=== PATIENT | female | born 1950 | race Caucasian/White ===

== ENCOUNTER 2016-12-30 23:41 | Emergency (ER) | payer MEDICARE, OTHER ==
[2016-12-31] MEDS ORDERED: SODIUM CHLORIDE 0.9% 1,000 ML IV STA (00:08)
[2016-12-31] MEDS ORDERED: ONDANSETRON 4 MG/2 ML VIAL IVP STA (00:08)
[2016-12-31 00:24] LABS: Basophils # (A) 0.1 k/uL (0-0.2); Basophils % (A) 1 %; CH 30.7; CHCM 34.2; Eosinophils # (A) 0.1 k/uL (0-0.7); Eosinophils % (A) 2 %; HCT 37.5 % (34.0-46.0); HDW 2.32; HGB 12.6 gm/dL (11.4-16.0); Luc # (Auto) 0.13; Luc % (Auto) 2; Lymphocytes # (A) 3.4 k/uL (1.0-4.8); Lymphocytes % (A) 45 %; MCH 30.2 pg (25.0-35.0); MCHC 33.6 g/dL (31.0-37.0); Mean Platelet Volume 7.2; Monocytes # (A) 0.4 k/uL (0-1.0); Monocytes % (A) 6 %; Neutrophils # (A) 3.5 k/uL (1.3-7.7); Neutrophils % (A) 46 %; RBC 4.16 m/uL (3.80-5.40); RDW 14.3 % (11.5-15.5); WBC 7.6 k/uL (3.8-10.6); WBC (Perox) 7.82
--- NOTE | 2016-12-31 00:25 | ED ---
General Adult HPI - General Chief complaint: Abdominal Pain Stated complaint: abd pain Time Seen by Provider: 12/31/16 00:06 Source: patient, EMS, RN notes reviewed Mode of arrival: EMS - History of Present Illness Initial comments: 66-year-old female presents to the emergency department with a chief complaint of left-sided flank pain. Patient states this started today and gradually got worse. Patient denies any changes in urination. Patient denies any fever or chills. Patient states she does have a family history of kidney stones so she thought that maybe this was it. Patient denies any nausea or vomiting. Patient states that her pain has improved somewhat. Patient states that she is not currently having any other symptoms at this time.Patient denies any recent fever, chills, shortness of breath, chest pain, nausea vomiting, numbness or tingling, dysuria or hematuria, constipation or diarrhea, headaches or visual changes, or any other current symptoms. - Related Data Home Medications Medication Instructions Recorded Confirmed Calcium Carbonate/Vitamin D3 1 each PO Q48H 09/06/14 09/07/14 [Calcium 600-Vit D3 400 Tablet] Fish Oil/Dha/Epa [Fish Oil 1,200 1 each PO DAILY 09/06/14 09/07/14 mg Fish Oil] Multivitamins, Thera [Multivitamin 1 each PO DAILY 09/06/14 09/07/14 (formulary)] Citalopram Hydrobromide [CeleXA] 10 mg PO DAILY PRN 09/07/14 09/07/14 Fluticasone Propionate [Flonase 1 spray EA NOSTRIL BID PRN 09/07/14 09/07/14 Allergy Relief] Isosorbide Mononitrate [Imdur] 120 mg PO DAILY 09/07/14 09/07/14 Metoprolol Tartrate [Lopressor] 50 mg PO BID 09/07/14 09/07/14 amLODIPine [Norvasc] 5 mg PO DAILY 09/07/14 09/07/14 Previous Rx's Medication Instructions Recorded Omeprazole [PriLOSEC] 20 mg PO DAILY capsule. 09/10/14 Ketorolac [Toradol] 10 mg PO Q6HR #20 tab 12/31/16 Ondansetron Odt [Zofran ODT] 4 mg PO Q8HR PRN #20 tab 12/31/16 Tamsulosin [Flomax] 0.4 mg PO DAILY #5 cap 12/31/16 Allergies Allergy/AdvReac Type Severity Reaction Status Date / Time No Known Allergies Allergy Verified 09/06/14 20:30 Review of Systems ROS Statement: Those systems with pertinent positive or pertinent negative responses have been documented in the HPI. ROS Other: All systems not noted in ROS Statement are negative. Past Medical History Past Medical History: Hypertension History of Any Multi-Drug Resistant Organisms: None Reported Past Surgical History: Hysterectomy, Tonsillectomy Additional Past Surgical History / Comment(s): pt states she has enlarged heart , denies any other history. cataract surgery. Tonsillectomy Past Psychological History: No Psychological Hx Reported Smoking Status: Former smoker Past Alcohol Use History: Rare Past Drug Use History: None Reported General Exam - General Exam Comments Initial Comments: General: The patient is awake and alert, in no distress, and does not appear acutely ill. Eye: Pupils are equal, round and reactive to light, extra-ocular movements are intact; there is normal conjunctiva bilaterally. No signs of icterus. Ears, nose, mouth and throat: There are moist mucous membranes. Neck: The neck is supple, there is no tenderness. Cardiovascular: There is a regular rate and rhythm. No murmur, rub or gallop is appreciated. Respiratory: Lungs are clear to auscultation, respirations are non-labored, breath sounds are equal. No wheezes, stridor, rales, or rhonchi. Gastrointestinal: Soft, non-distended, non-tender abdomen without masses or organomegaly noted. There is no rebound or guarding present. No CVA tenderness. Bowel sounds are unremarkable. Back: There is no tenderness to palpation in the midline. There is no obvious deformity. No rashes noted. Musculoskeletal: Normal ROM, no tenderness, There is no pedal edema. There is no calf tenderness or swelling. Sensation intact. Pulses equal bilaterally 2+. Neurological: CN II-XII intact, There are no obvious motor or sensory deficits. Coordination appears grossly intact. Speech is normal. Skin: Skin is warm and dry and no rashes or lesions are noted. Psychiatric: Cooperative, appropriate mood & affect, normal judgment. Course Vital Signs 12/30/16 12/31/16 12/31/16 23:55 01:12 02:00 Temperature 97.6 F 97.6 F Pulse Rate 77 71 65 Respiratory 16 18 18 Rate Blood Pressure 131/88 123/74 139/83 O2 Sat by Pulse 98 96 98 Oximetry Medical Decision Making - Medical Decision Making 66-year-old female presents to the emergency Department chief complaint of left- sided flank pain. This time patient's pain has resolved. Patient does appear to have a decreased carbon dioxide when compared to previous lab work it does appear to be close to her baseline. This time we discussion stop the doctor for repeat. We did discuss she's be extra careful will still she feels any abnormality or starts to worsen she is return the emergency Department immediately. We did CAT scan findings we did discuss chest. This. We discussed all the questions. She stated she understood and she plan. She will be discharged - Lab Data Result diagrams: 12/30/16 23:55 12/31/16 02:11 Lab Results 12/30/16 12/30/16 12/31/16 Range/Units 23:55 23:55 01:21 WBC 7.6 (3.8-10.6) k/uL RBC 4.16 (3.80-5.40) m/uL Hgb 12.6 (11.4-16.0) gm/dL Hct 37.5 (34.0-46.0) % MCV 90.0 (80.0-100.0) fL MCH 30.2 (25.0-35.0) pg MCHC 33.6 (31.0-37.0) g/dL RDW 14.3 (11.5-15.5) % Plt Count 251 (150-450) k/uL Neutrophils % 46 % Lymphocytes % 45 % Monocytes % 6 % Eosinophils % 2 % Basophils % 1 % Neutrophils # 3.5 (1.3-7.7) k/uL Lymphocytes # 3.4 (1.0-4.8) k/uL Monocytes # 0.4 (0-1.0) k/uL Eosinophils # 0.1 (0-0.7) k/uL Basophils # 0.1 (0-0.2) k/uL Sodium 138 (137-145) mmol/L Potassium 4.1 (3.5-5.1) mmol/L Chloride 109 H (98-107) mmol/L Carbon Dioxide 14 L (22-30) mmol/L Anion Gap 15 mmol/L BUN 19 H (7-17) mg/dL Creatinine 1.00 (0.52-1.04) mg/dL Est GFR (MDRD) Af Amer >60 (>60 ml/min/1.73 sqM) Est GFR (MDRD) Non-Af 55 (>60 ml/min/1.73 sqM) Glucose 109 H (74-99) mg/dL Calcium 9.3 (8.4-10.2) mg/dL Total Bilirubin 0.7 (0.2-1.3) mg/dL AST 17 (14-36) U/L ALT 25 (9-52) U/L Alkaline Phosphatase 75 (38-126) U/L Total Protein 6.0 L (6.3-8.2) g/dL Albumin 3.8 (3.5-5.0) g/dL Amylase 45 (30-110) U/L Lipase 129 (23-300) U/L Urine Color Light Yellow Urine Appearance Clear (Clear) Urine pH 6.5 (5.0-8.0) Ur Specific Stuart 1.006 (1.001-1.035) Urine Protein Negative (Negative) Urine Glucose (UA) Negative (Negative) Urine Ketones Negative (Negative) Urine Blood Negative (Negative) Urine Nitrite Negative (Negative) Urine Bilirubin Negative (Negative) Urine Urobilinogen <2.0 (<2.0) mg/dL Ur Leukocyte Esterase Negative (Negative) 12/31/16 Range/Units 02:11 WBC (3.8-10.6) k/uL RBC (3.80-5.40) m/uL Hgb (11.4-16.0) gm/dL Hct (34.0-46.0) % MCV (80.0-100.0) fL MCH (25.0-35.0) pg MCHC (31.0-37.0) g/dL RDW (11.5-15.5) % Plt Count (150-450) k/uL Neutrophils % % Lymphocytes % % Monocytes % % Eosinophils % % Basophils % % Neutrophils # (1.3-7.7) k/uL Lymphocytes # (1.0-4.8) k/uL Monocytes # (0-1.0) k/uL Eosinophils # (0-0.7) k/uL Basophils # (0-0.2) k/uL Sodium 139 (137-145) mmol/L Potassium 3.9 (3.5-5.1) mmol/L Chloride 113 H (98-107) mmol/L Carbon Dioxide 15 L (22-30) mmol/L Anion Gap 11 mmol/L BUN 17 (7-17) mg/dL Creatinine 0.90 (0.52-1.04) mg/dL Est GFR (MDRD) Af Amer >60 (>60 ml/min/1.73 sqM) Est GFR (MDRD) Non-Af >60 (>60 ml/min/1.73 sqM) Glucose 104 H (74-99) mg/dL Calcium 8.8 (8.4-10.2) mg/dL Total Bilirubin 0.7 (0.2-1.3) mg/dL AST 17 (14-36) U/L ALT 22 (9-52) U/L Alkaline Phosphatase 68 (38-126) U/L Total Protein 5.5 L (6.3-8.2) g/dL Albumin 3.4 L (3.5-5.0) g/dL Amylase (30-110) U/L Lipase (23-300) U/L Urine Color Urine Appearance (Clear) Urine pH (5.0-8.0) Ur Specific Stuart (1.001-1.035) Urine Protein (Negative) Urine Glucose (UA) (Negative) Urine Ketones (Negative) Urine Blood (Negative) Urine Nitrite (Negative) Urine Bilirubin (Negative) Urine Urobilinogen (<2.0) mg/dL Ur Leukocyte Esterase (Negative) - Radiology Data Radiology results: report reviewed, image reviewed Disposition Clinical Impression: Ureteral calculi, Renal cyst Disposition: HOME SELF-CARE Condition: Stable Instructions: Ureteral Stones (ED) Additional Instructions: Please use medication as discussed. Please follow up with family doctor if symptoms have not improved over the next two days. Please return to the emergency room if your symptoms increase or worsen or for any other concerns. Prescriptions: Ketorolac [Toradol] 10 mg PO Q6HR #20 tab Ondansetron Odt [Zofran ODT] 4 mg PO Q8HR PRN #20 tab PRN Reason: Nausea Tamsulosin [Flomax] 0.4 mg PO DAILY #5 cap Referrals: Livia Ortega DO [Primary Care Provider] - 1-2 days Time of Disposition: 02:42
[2016-12-31 00:33] LABS: ALT 25 U/L (9-52); AST 17 U/L (14-36); Alkaline Phosphatase 75 U/L (38-126); Amylase 45 U/L (30-110); Anion Gap 15 mmol/L; Blood Urea Nitrogen 19 mg/dL (7-17); Calcium 9.3 mg/dL (8.4-10.2); Carbon Dioxide 14 mmol/L (22-30); Chloride 109 mmol/L (98-107); Glucose 109 mg/dL (74-99); Non-African American GFR(MDRD) 55 (>60 ml/min/1.73 sqM); Potassium 4.1 mmol/L (3.5-5.1); Sodium 138 mmol/L (137-145); Total Bilirubin 0.7 mg/dL (0.2-1.3)
[2016-12-31 01:14] VITALS: RESP 18
[2016-12-31 01:30] LABS: Appearance,Urine Clear (Clear); Bilirubin,Urine Negative (Negative); Glucose,Urine (UA) Negative (Negative); Ketones,Urine Negative (Negative); Leukocyte Esterase,Urine Negative (Negative); Nitrite,Urine Negative (Negative); PH, Urine 6.5 (5.0-8.0); Protein,Urine Negative (Negative); Specific Gravity,Urine 1.006 (1.001-1.035); UA Billing (MACRO vs. MICRO) CHEM; Urobilinogen,Urine <2.0 mg/dL (<2.0)
--- NOTE | 2016-12-31 01:37 | CT ---
EXAM: CT Abdomen and Pelvis Without Intravenous Contrast CLINICAL HISTORY: LLQ and left flank pain with bladder leakage and control issues, history of hysterectomy, renal stone protocol TECHNIQUE: Axial computed tomography images of the abdomen and pelvis without intravenous contrast. CTDI is 12.3 mGy and DLP is 573.7 mGy-cm. This CT exam was performed using one or more of the following dose reduction techniques: automated exposure control, adjustment of the mA and/or kV according to patient size, and/or use of iterative reconstruction technique. Coronal and sagittal reformatted images were created and reviewed. COMPARISON: CT abdomen and pelvis 09/06/14 FINDINGS: Lower thorax: Mild left basilar scarring/atelectasis. ABDOMEN: Liver: Prominent left lobe of the liver. Gallbladder and bile ducts: Unremarkable. No calcified stones. No ductal dilation. Pancreas: Unremarkable. No ductal dilation. Spleen: Unremarkable. No splenomegaly. Small splenule. Adrenals: Unremarkable. No mass. Kidneys and ureters: Bilateral parapelvic cysts. Tiny calcification region of the distal left ureter, axial image 121 of series 3. Somewhat limited evaluation due to streak artifact from surgical clips. Cannot exclude a possible ureteral stone without obstruction. No evidence for hydronephrosis. Stomach and bowel: Unremarkable. No obstruction. No mucosal thickening. Appendix: Normal appendix. No findings to suggest acute appendicitis. PELVIS: Bladder: Unremarkable. No stones. Reproductive: Uterus is surgically absent. ABDOMEN and PELVIS: Intraperitoneal space: Unremarkable. No free air. No significant fluid collection. Bones/joints: Moderate osteoarthritis of the hips. Multilevel degenerative disc disease. Grade 1 retrolisthesis at L2-3 and L5-S1. Grade 1 anterolisthesis L4-5. Multilevel facet joint hypertrophy present. Cystic degenerative changes of the right hip, progressive since prior study. Prominent bursal fluid collection of the left hip may be bursitis. No acute fracture. No dislocation. Soft tissues: Surgical changes to the pelvis posterior to the urinary bladder as well as of the lower aspect of the rectus diastases musculature. Very small fatty umbilical hernia. Vasculature: Mild atherosclerosis of the aorta. No abdominal aortic aneurysm. Lymph nodes: Unremarkable. No enlarged lymph nodes. IMPRESSION: 1. Bilateral parapelvic renal cysts. Tiny 1-2 mm calcification region of the distal left ureter, axial image 121 of series 3. Somewhat limited evaluation due to streak artifact from surgical clips. Cannot exclude a possible ureteral stone without obstruction. 2. Bursal collection at the inferior left hip joint, may be bursitis. 3. Progressive right hip degenerative changes.
[2016-12-31] MEDS ORDERED: KETOROLAC 30 MG/ML 1 ML VIAL IVP STA (01:48)
[2016-12-31 02:34] LABS: ALT 22 U/L (9-52); AST 17 U/L (14-36); Alkaline Phosphatase 68 U/L (38-126); Anion Gap 11 mmol/L; Blood Urea Nitrogen 17 mg/dL (7-17); Calcium 8.8 mg/dL (8.4-10.2); Carbon Dioxide 15 mmol/L (22-30); Chloride 113 mmol/L (98-107); Glucose 104 mg/dL (74-99); Non-African American GFR(MDRD) >60 (>60 ml/min/1.73 sqM); Potassium 3.9 mmol/L (3.5-5.1); Sodium 139 mmol/L (137-145); Total Bilirubin 0.7 mg/dL (0.2-1.3); Total Protein 5.5 g/dL (6.3-8.2)
[2016-12-31 03:15] VITALS: BP 138/89; PULSE 69; TEMP 97.9
== END 2016-12-31 03:15 | disposition home or self-care (01) ==
LOC: EC 23:41
DX: N20.1 Calculus of ureter (principal); N28.1 Cyst of kidney, acquired; I10 Essential (primary) hypertension; Z87.891 Personal history of nicotine dependence; Z84.1 Family history of disorders of kidney and ureter; Z79.899 Other long term (current) drug therapy
CPT/HCPCS: 36415 ×2; 80053 ×2; 82150; 83690; 85025; 81003; 87086; 74176; 99285; 96374; 96375; 96361; J2405; J1885

== ENCOUNTER → 2018-02-03 | Outpatient (CLI) | payer MEDICARE, OTHER ==
[2018-02-03 13:32] LABS: Appearance,Urine Clear (Clear); Bilirubin,Urine Negative (Negative); Blood,Urine Negative (Negative); Color,Urine Yellow; Glucose,Urine (UA) Negative (Negative); Ketones,Urine Negative (Negative); Leukocyte Esterase,Urine Negative (Negative); Nitrite,Urine Negative (Negative); Protein,Urine Negative (Negative); Specific Gravity,Urine 1.016 (1.001-1.035); Urobilinogen,Urine <2.0 mg/dL (<2.0)
[2018-02-03 13:53] LABS: HCT 38.1 % (34.0-46.0); HGB 12.7 gm/dL (11.4-16.0); MCH 29.8 pg (25.0-35.0); MCHC 33.5 g/dL (31.0-37.0); Mean Platelet Volume 7.1; Platelet Count 234 k/uL (150-450); RBC 4.27 m/uL (3.80-5.40); RDW 13.8 % (11.5-15.5)
[2018-02-03 13:59] LABS: ALT 22 U/L (9-52); AST 16 U/L (14-36); Albumin 3.9 g/dL (3.5-5.0); Alkaline Phosphatase 76 U/L (38-126); Anion Gap 8 mmol/L; Blood Urea Nitrogen 18 mg/dL (7-17); Calcium 9.2 mg/dL (8.4-10.2); Carbon Dioxide 23 mmol/L (22-30); Chloride 107 mmol/L (98-107); Glucose 94 mg/dL (74-99); Potassium 4.6 mmol/L (3.5-5.1); Sodium 138 mmol/L (137-145); Total Bilirubin 0.6 mg/dL (0.2-1.3); Total Protein 6.2 g/dL (6.3-8.2)
[2018-02-03 14:09] LABS: Partial Thromboplastin Time 21.7 sec (22.0-30.0)
== END | disposition home or self-care (01) ==
LOC: LABPAT 12:20
PROVIDERS: ATTEND Orthopaedic Surgery
DX: Z01.812 Encounter for preprocedural laboratory examination (principal)
CPT/HCPCS: 80053; 81003; 85027; 85610; 85730; 86850; 86900; 86901; 87070

== ENCOUNTER 2018-02-13 10:44 | Inpatient (IN) | payer MEDICARE, OTHER ==
[2018-02-08 10:55] VITALS: BMI 30.1
[~2018-02-13 10:44] MED LIST: ACETAMINOPHEN TAB 500 MG TAB PO ONE; HYDROmorphone 0.5 MG/0.5 ML SYRINGE IVP PRN; LIDOCAINE 1% 20 ML VIAL (10MG/ML) FOR IV START INTRADERMA PRN; ONDANSETRON 4 MG/2 ML VIAL IVP ONE; TRANEXAMIC ACID 1,000 MG in SODIUM CHLORIDE 0.9% 50 ML IVPB ONE; ceFAZolin IN SWFI 2 GM/20 ML SYRINGE IVP ONE
[2018-02-13] MEDS: LACTATED RINGERS 1,000 ML IV SCH ×3 (11:42→23:58)
[2018-02-13] MEDS ORDERED: fentaNYL (PF) 50 MCG/ML 2 ML AMP ONE (12:30)
[2018-02-13] MEDS ORDERED: PROPOFOL 10 MG/ML 20 ML VIAL IV ONE (12:30)
[2018-02-13] MEDS ORDERED: SODIUM CHLORIDE 0.9% 100 ML BAG ONE (12:30)
[2018-02-13] MEDS ORDERED: diphenhydrAMINE 50 MG/ML 1 ML VIAL ONE (12:30)
[2018-02-13] MEDS ORDERED: MIDAZOLAM 2 MG/2 ML VIAL ONE (12:30)
[2018-02-13] MEDS ORDERED: PHENYLEPHRINE-0.9% NACL SYG 1 MG/10 ML SYRINGE ONE (12:30)
[2018-02-13] MEDS ORDERED: TRANEXAMIC ACID 1,000 MG/10 ML VIAL ONE (12:30)
[2018-02-13] MEDS ORDERED: ePHEDrine SULFATE/0.9% NACL/PF 50 MG/5 ML SYRINGE IV ONE (12:30)
[2018-02-13] MEDS ORDERED: ceFAZolin 3,000 MG in SODIUM CHLORIDE 0.9% IRRIGATIO 3,000 ML IRRIGATION ONE (13:14)
[2018-02-13] MEDS ORDERED: ROPIVACAINE 246.25 MG, EPINEPHrine 0.5 MG, KETOROLAC 30 MG, cloNIDine HCL/PF 80 MCG, WA... MISCELLANE ONE ×5 (13:18)
[2018-02-13] MEDS ORDERED: LACTATED RINGERS 1,000 ML IV ONE (14:08)
[2018-02-13] MEDS ORDERED: ONDANSETRON 4 MG/2 ML VIAL IVP PRN (14:54)
[2018-02-13] MEDS ORDERED: NALOXONE 0.4 MG/ML 1 ML VIAL IV PRN (14:54)
[2018-02-13] MEDS ORDERED: HYDROmorphone 1 MG/ML 1 ML SYRINGE IVP PRN ×3 (14:54)
[2018-02-13] MEDS ORDERED: MAGNESIUM HYDROXIDE 2,400 MG/10 ML CUP PO PRN (14:54)
--- NOTE | 2018-02-13 15:19 | XR ---
EXAMINATION TYPE: XR Hip Limited LT DATE OF EXAM: 02/13/2018 CLINICAL HISTORY: Left hip pain and osteoarthritis. TECHNIQUE: Single AP portable view of left hip is obtained immediately postoperatively. COMPARISON: None. FINDINGS: Metallic hardware from left hip arthroplasty is seen and appears satisfactory in alignment and position. There is evidence of recent surgery with subcutaneous gas noted laterally. Numerous s urgical clips overlie the visualized pelvis. IMPRESSION: Metallic hardware from left hip arthroplasty is satisfactory in position.
[2018-02-13] MEDS: ceFAZolin IN SWFI 2 GM/20 ML SYRINGE IVP SCH ×2 (17:20→23:58)
[2018-02-13] MEDS ORDERED: WARFARIN 5 MG TAB PO ONE (18:00)
--- NOTE | 2018-02-13 18:03 | P.OP ---
Date of Procedure: 02/13/18 Procedure(s) Performed: PREOPERATIVE DIAGNOSIS: Left hip severe osteoarthritis POSTOPERATIVE DIAGNOSIS: Left hip severe osteoarthritis OPERATION: Left hip total replacement arthroplasty (uncemented implantation with ceramic on polyethylene articulation). ANESTHESIA: Spinal ESTIMATED BLOOD LOSS: 150 ml. RHIT: Gia Henry PA-C (assistance with: patient positioning, retraction, exposure, hemostasis, leg positioning, implantation, irrigation, closure, dressing) COMPLICATIONS: None apparent. COMPONENTS IMPLANTED: Richelle continuum acetabular cup with cluster holes; continuum longevity 15 elevated liner, 32 mm id; Richelle VerSys Fiber Metal stem ; VerSys 32 mm femoral head with +7 mm neck length extension INDICATIONS: Mrs. Guerra is a 67-year-old female with significant end-stage osteoarthritis involving the left hip and commensurate severe symptoms. She presents to the operating room today for total hip replacement. I have discussed the steps of the operation as well as potential risks and complications as being inclusive of, but not limited to: Leading, infection, scarring, discomfort, or vessel and/or nerve damage, need for further surgery, loosening, dislocation, wear, osteolysis, limb length inequality, fracture, blood clot, pulmonary embolism, , persistent limp, and other risks. The patient is aware these risks and wishes to proceed with surgery and has signed a consent form. PROCEDURE: After appropriate consent was obtained, the patient was taken to the operating room and placed in supine position. Spinal anesthetic was administered and after confirmation of adequate anesthesia, the patient was placed into the lateral decubitus position with the left side up. Care was taken to make sure that all pressure points were adequately padded and he was stabilized to the table with a [place] hip positioner. The left hip was prepped and draped in the usual aseptic fashion using a combination of DuraPrep and alcohol. [place]an drape was used for the case and the patient received intravenous antibiotics prior to the incision. "Time out" was called, confirming patient identity, side, procedure, availability of implants and administration of antibiotics. The incision was created directly over the greater trochanter and carried slightly posteriorly for a posterior approach to the hip. The incision was then deepened down to subcutaneous tissue and fascia kindra. Fascia kindra was split in line with the incision and split proximally along the fibers of the gluteus jed. The underlying fibers of the muscle were teased apart using finger dissection and bleeding vessels were picked up and coagulated. Retractor was then placed posteriorly consisting of a blunt [place]. The short external rotators and capsule were exposed using good visualization of the attachment of the external rotators to the femur was established. The short external rotators and capsule were released using electrocautery from their femoral attachments. A hockey stick shaped incision was created in the capsule. Joint fluid was evacuated and the patient's hip was able to be dislocated fairly easily. The patient's femoral head was severely arthritic with eburnated bone present and a 360 degrees jones of osteophytes. The femoral neck cut was created approximately 1 cm superior to the lesser trochanter using a reciprocating saw. The femoral head and neck fragment was removed and attention was then directed to the acetabulum. An anterior acetabular retractor was applied followed by posterior retraction of the capsule with a [place] retractor. This afforded good visualization into the acetabular cavity. Soft tissue was removed and residual cartilage within the acetabular vault was removed using a curette. Labrum was removed using a long-handled knife. Attention was then directed to reaming. The size 44 reamer was used first, followed by increasing increments until the final size reamer was used. Please see the implantation sheet for exact sizes used for the components. Once the final reamer had been utilized to expand the socket it was noted that there was a good supportive bone around the acetabular socket and no further reaming needed to be performed. The trial the same size as the last reamer used was then impacted into the acetabular vault and found to have good fit. The acetabular component, one size (2mm) greater than the trial was then called for. The cluster holes were placed posteriorly and the component was impacted in a position of approximately 40 degrees abduction and 20 degrees anteversion. This matched this patient's q[place] anteversion and it was noted that the cup had excellent stability without need for additional screw fixation. Attention was then directed to the acetabular liner. The anteversion and abduction angle of the component was noted to be very good. A 15 elevated liner was used and locked into position. Osteophytes around the posterior and inferior aspect of the acetabulum were trimmed as necessary to prevent any impingement. Attention was then directed back to the proximal femur. Retractors were placed around the proximal femur and box osteotome was used followed by canal finder and trochanteric reamer. Cylindrical reaming was performed. Progressive broaching was then performed starting with a #10 broach and progressing final size, in a position of 15 degrees anteversion. [place] anteversion was within 5 degrees of stem position. The final size broach had excellent fit and fill of the patient's metaphysis and diaphysis. Trial reduction was then performed starting with size 32 mm femoral head and various neck combination of stability , limb length equality, and soft tissue tension. Trial components were then removed. The canal was lavaged and the final size femoral stem component was impacted into position. The implant fit very well and had excellent stability. The femoral head was then impacted onto the Sharpe taper. Blood and debris were removed from the acetabular component and the hip was then reduced and checked for stability, limb length and soft tissue tension. These parameters found to be satisfactory, the wound was then thoroughly irrigated with normal saline. Final hemostasis was obtained using electrocautery and IV tranexamic acid, 1 g given at the time of prepping and draping, and another 1 g given at the time of closure. Local anesthetic solution consisting of ropivacaine with epinephrine, clonidine, and ketorolac was also used throughout the case targeting the capsule , fascia, and skin. Closure of the capsule was performed meticulously using #3 Vicryl suture. Four [id number] sutures were placed in the posterior capsule along with repair of the external rotators. The fascia kindra was then repaired using combination of #3 Vicryl suture in interrupted fashion and [place]ill and running fashion. 2-0 Vicryl suture was used for the subcutaneous tissues and 3-0 Quill for the skin. Dermabond or Steri-Strips were then applied. The patient tolerated the procedure well. There were no complications and the wound bed was dry and there was no need for drain placement. Sterile dressing was then applied and the patient was carefully removed from the operating room table , placed on the stretcher and was taken to the recovery room in stable condition. Sponge and needle counts were correct.
[2018-02-13] MEDS: HYDROcodone/APAP 5-325MG 1 EACH TAB PO PRN (19:48)
[2018-02-13] MEDS: CITALOPRAM HYDROBROMIDE 10 MG TAB PO SCH (20:36)
[2018-02-13] MEDS: PRAVASTATIN SODIUM 80 MG TAB PO SCH (20:37)
[2018-02-13] MEDS: SENNOSIDES-DOCUSATE SODIUM 1 EACH TAB PO SCH (20:37)
[2018-02-13] MEDS: RANOLAZINE 500 MG TAB.ER.12H PO SCH (20:37)
[2018-02-13] MEDS ORDERED: METOPROLOL TARTRATE 50 MG TAB PO SCH (21:00)
[2018-02-14] MEDS: SODIUM CHLORIDE 0.9% 1,000 ML IV SCH ×3 (00:32→15:28)
[2018-02-14] MEDS: SODIUM CHLORIDE 0.9% 250 ML IV SCH ×2 (00:33→01:33)
[2018-02-14] MEDS: LACTATED RINGERS 1,000 ML IV SCH (04:30)
[2018-02-14 07:45] LABS: Basophils % (A) 0 %; Eosinophils # (A) 0.1 k/uL (0-0.7); Eosinophils % (A) 1 %; HCT 34.3 % (34.0-46.0); HGB 10.9 gm/dL (11.4-16.0); Lymphocytes # (A) 0.8 k/uL (1.0-4.8); Lymphocytes % (A) 11 %; MCH 28.8 pg (25.0-35.0); MCHC 31.8 g/dL (31.0-37.0); MCV 90.7 fL (80.0-100.0); Mean Platelet Volume 7.1; Monocytes # (A) 0.4 k/uL (0-1.0); Monocytes % (A) 6 %; Neutrophils % (A) 82 %; Platelet Count 175 k/uL (150-450); RBC 3.78 m/uL (3.80-5.40); RDW 14.1 % (11.5-15.5); WBC 7.3 k/uL (3.8-10.6)
[2018-02-14 07:48] LABS: INR 1.6 (<1.2); Prothrombin Time 15.1 sec (9.0-12.0)
--- NOTE | 2018-02-14 08:50 | P.PN ---
Subjective Progress Note Date: 02/14/18 Principal diagnosis: Status post left total hip arthroplasty This is a 67 year-old female post left total hip arthroplasty. This is post-op day 1. The patient was evaluated at the bedside today. The patient denies nausea, vomiting, abdominal pain, shortness of breath, and chest pain this morning. She states her pain is controlled at this time. The patient has not been up with physical therapy. Objective - Vital Signs Vital signs: Vital Signs Temp 98.7 F 02/14/18 07:00 Pulse 60 02/14/18 07:00 Resp 16 02/13/18 23:50 BP 104/67 02/14/18 07:00 Pulse Ox 92 L 02/13/18 23:50 Intake & Output 02/13/18 02/14/18 02/14/18 18:59 06:59 18:59 Intake Total 1401 1700 Output Total 150 Balance 1251 1700 Intake: IV 1401 Intake, IV Titration 1200 Amount Lactated Ringers 1,000 ml 200 @ 100 mls/hr IV .Q10H JAVY Rx#:[id number] Sodium Chloride 0.9% 1, 1000 000 ml @ 125 mls/hr IV . Q8H JAVY Rx#:[id number] Oral 500 Output: Estimated Blood Loss 150 Other: # Voids 1 - Exam The patient does not appear in acute distress. Alert and orientated x3. Dressing is clean dry and intact. Incision appears fine with no erythema or active drainage. Calf is soft and nontender. Good foot and ankle motion without difficulty. Sensation and circulatory status is intact. - Labs CBC & Chem 7: 02/14/18 07:11 Labs: Abnormal Lab Results - Last 24 Hours (Table) 02/14/18 02/14/18 Range/Units 07:11 07:11 RBC 3.78 L (3.80-5.40) m/uL Hgb 10.9 L (11.4-16.0) gm/dL Lymphocytes # 0.8 L (1.0-4.8) k/uL PT 15.1 H (9.0-12.0) sec INR 1.6 H (<1.2) Assessment and Plan (1) Osteoarthritis of left hip Current Visit: Yes Status: Acute Code(s): M16.12 - UNILATERAL PRIMARY OSTEOARTHRITIS, LEFT HIP SNOMED Code(s): 325091009364396 (2) Status post total hip replacement, left Current Visit: Yes Status: Acute Code(s): Z96.642 - PRESENCE OF LEFT ARTIFICIAL HIP JOINT SNOMED Code(s): 965888281852 Plan: 1. Continue pain control 2. Anticoagulation with Coumadin per protocol 3. Start physical therapy and ambulation 4. Anticipate discharge home with homecare today or tomorrow.
[2018-02-14] MEDS: CITALOPRAM HYDROBROMIDE 10 MG TAB PO SCH (09:16)
[2018-02-14] MEDS: RANOLAZINE 500 MG TAB.ER.12H PO SCH ×2 (09:16→20:05)
[2018-02-14] MEDS: HYDROcodone/APAP 5-325MG 1 EACH TAB PO PRN ×2 (09:18→18:53)
--- NOTE | 2018-02-14 13:45 | P.CONS ---
History of Present Illness - History of Present Illness This is a pleasant 67 years old female with past medical history of GERD, hypertension, hyperlipidemia, coronary artery disease, osteoarthritis. She presents for elective left total hip arthroplasty. Severe degenerative joint disease. Today is postoperative day 1 Patient seen and examined by me at bedside. No chest pain. No dyspnea. No chest neuro bowel habits. No fever. Patient still needed for pain is controlled. Patient states that she sees Dr. Shelton as her PCP Review of Systems CONSTITUTIONAL: No fever, no malaise, no fatigue. HEENT: No recent visual problems or hearing problems. Denied any sore throat. CARDIOVASCULAR: No orthopnea, PND, no palpitations, no syncope. PULMONARY: No shortness of breath, no cough, no hemoptysis. GASTROINTESTINAL: No diarrhea, no nausea, no vomiting, no abdominal pain. Normoactive bowel sounds. NEUROLOGICAL: No headaches, no weakness, no numbness. HEMATOLOGICAL: Denies any bleeding or petechiae. GENITOURINARY: Denies any burning micturition, frequency, or urgency. MUSCULOSKELETAL/RHEUMATOLOGICAL: Denies any joint pain, swelling, or any muscle pain. ENDOCRINE: Denies any polyuria or polydipsia. Past Medical History Past Medical History: GERD/Reflux, Hyperlipidemia, Hypertension, Myocardial Infarction (AR), Osteoarthritis (OA) Last Myocardial Infarction Date:: FEB 2014 History of Any Multi-Drug Resistant Organisms: None Reported Past Surgical History: Breast Surgery, Hysterectomy, Orthopedic Surgery, Tonsillectomy Additional Past Surgical History / Comment(s): cataract surgery. Tonsillectomy, BREAST BIOPSY- RIGHT 2010, total left hip Past Anesthesia/Blood Transfusion Reactions: No Reported Reaction Past Psychological History: Anxiety Additional Psychological History / Comment(s): ANXIETY OCCASIONAL Smoking Status: Former smoker Past Alcohol Use History: None Reported Additional Past Alcohol Use History / Comment(s): STARTED SMOKING AT AGE 28 QUIT AT AGE 33 SMOKED 1/2PPD Past Drug Use History: None Reported - Past Family History Mother Family Medical History: Diabetes Mellitus Additional Family Medical History / Comment(s): type 1 DM Medications and Allergies Home Medications Medication Instructions Recorded Confirmed Type Fish Oil/Dha/Epa [Fish Oil 1,200 1 cap PO DAILY 09/06/14 02/13/18 History mg Fish Oil] Multivitamins, Thera [Multivitamin 1 tab PO DAILY 09/06/14 02/13/18 History (formulary)] Citalopram Hydrobromide [CeleXA] 10 mg PO DAILY 09/07/14 02/13/18 History Isosorbide Mononitrate [Imdur] 120 mg PO DAILY 09/07/14 02/13/18 History Metoprolol Tartrate [Lopressor] 50 mg PO BID 09/07/14 02/13/18 History amLODIPine [Norvasc] 5 mg PO DAILY 09/07/14 02/13/18 History HYDROcodone/APAP 7.5-325MG [[place] 1 tab PO Q4-6H PRN 02/08/18 02/13/18 History 7.5-325] Omeprazole [PriLOSEC] 20 mg PO DAILY PRN 02/08/18 02/13/18 History Pravastatin Sodium [Pravachol] 80 mg PO HS 02/08/18 02/13/18 History Ranolazine [Ranexa] 1,000 mg PO BID 02/08/18 02/13/18 History HYDROcodone/APAP 5-325MG [[place] 1 - 2 each PO Q4-6H PRN #50 tab 02/13/18 Rx 5-325] Sennosides-Docusate Sodium 1 tab PO BID #60 tablet 02/13/18 Rx [Senokot-S] Warfarin [Coumadin] 2.5 mg PO DAILY #1 tab 02/13/18 Rx Allergies Allergy/AdvReac Type Severity Reaction Status Date / Time No Known Allergies Allergy Verified 02/13/18 17:20 Physical Exam Vitals: Vital Signs Temp Pulse Pulse Resp BP BP Pulse Ox 02/14/18 07:00 98.7 F 60 104/67 02/13/18 23:50 98.5 F 50 L 16 89/55 92 L 02/13/18 19:00 97.9 F 66 16 120/77 98 02/13/18 16:09 58 L 16 117/71 97 02/13/18 15:52 65 16 115/67 98 02/13/18 15:37 67 16 117/71 98 02/13/18 15:22 57 L 16 112/67 98 02/13/18 15:07 70 16 118/68 99 02/13/18 14:52 97.9 F 78 18 114/63 100 Intake and Output 02/13/18 02/14/1802/14/18 22:59 06:59 14:59 Intake Total 500 1500 Balance 500 1500 Intake: IV 300 Intake, IV Titration 200 1000 Amount Lactated Ringers 1,000 ml 200 @ 100 mls/hr IV .Q10H [facility] Rx#:[id number] Sodium Chloride 0.9% 1, 1000 000 ml @ 125 mls/hr IV . Q8H [facility] Rx#:[id number] Oral 500 Other: # Voids 1 1 GENERAL: The patient is alert and oriented x3, not in any acute distress. Well developed, well nourished. HEENT: Pupils are round and equally reacting to light. EOMI. No scleral icterus. No conjunctival pallor. Normocephalic, atraumatic. No pharyngeal erythema. No thyromegaly. CARDIOVASCULAR: S1 and S2 present. No murmurs, rubs, or gallops. PULMONARY: Chest is clear to auscultation, no wheezing or crackles. ABDOMEN: Soft, nontender, nondistended, normoactive bowel sounds. No palpable organomegaly. MUSCULOSKELETAL: No joint swelling or deformity. EXTREMITIES: No cyanosis, clubbing, or pedal edema. NEUROLOGICAL: Gross neurological examination did not reveal any focal deficits. SKIN: No rashes. Results CBC & Chem 7: 02/14/18 07:11 Labs: Abnormal Lab Results - Last 24 Hours (Table) 02/14/18 02/14/18 Range/Units 07:11 07:11 RBC 3.78 L (3.80-5.40) m/uL Hgb 10.9 L (11.4-16.0) gm/dL Lymphocytes # 0.8 L (1.0-4.8) k/uL PT 15.1 H (9.0-12.0) sec INR 1.6 H (<1.2) Assessment and Plan Assessment: Degenerative joint disease Status post left total hip arthroplasty GERD hypertension hyperlipidemia h/o coronary artery disease Plan: This is a pleasant 67 years old female who presents for left total hip arthroplasty. Continue same treatment. Continue with symptom with treatment. Resume home medications. Monitor vitals and labs. Pain management and DVT prophylaxis as per primary team. GI prophylaxis. Further recommendations based on the clinical course Plan for patient to going home with home health care Patient instructed to follow up with her primary care doctor in 1 week Consulting us, contact us for any further question or clarification
[2018-02-14] MEDS ORDERED: WARFARIN 5 MG TAB PO ONE (18:00)
[2018-02-14] MEDS: SENNOSIDES-DOCUSATE SODIUM 1 EACH TAB PO SCH (20:05)
[2018-02-14] MEDS: PRAVASTATIN SODIUM 80 MG TAB PO SCH (20:05)
[2018-02-15] MEDS: HYDROcodone/APAP 5-325MG 1 EACH TAB PO PRN ×4 (00:26→17:59)
[2018-02-15] MEDS: SODIUM CHLORIDE 0.9% 1,000 ML IV SCH ×4 (01:28→23:57)
[2018-02-15] MEDS: LACTATED RINGERS 1,000 ML IV SCH ×2 (05:45→23:57)
[2018-02-15 07:54] LABS: Prothrombin Time 26.9 sec (9.0-12.0)
--- NOTE | 2018-02-15 08:12 | P.PN ---
Subjective Progress Note Date: 02/15/18 Principal diagnosis: status post total left hip arthroplasty This is a 67-year-old female status post total left hip replacement. She is doing well and would like to go to rehab because she doesn't have help at home. Vital signs stable, pulse ox is 91. Objective - Vital Signs Vital signs: Vital Signs Temp 98.8 F 02/15/18 07:00 Pulse 56 L 02/15/18 07:00 Resp 16 02/15/18 07:00 BP 105/64 02/15/18 07:00 Pulse Ox 91 L 02/15/18 07:00 Intake & Output 02/14/18 02/15/18 02/15/18 18:59 06:59 18:59 Intake Total 640 1562.5 Balance 640 1562.5 Intake: Intake, IV Titration 1562.5 Amount Sodium Chloride 0.9% 1, 1562.5 000 ml @ 125 mls/hr IV . Q8H [facility] Rx#:[id number] Oral 640 Other: Voiding Method Bedside Commode # Voids 2 2 - Exam 67-year-old female in no acute distress. Alert and oriented 3. Exam of the left hip reveals that her incision is clean and dry. No drainage. She has full foot and ankle motion without difficulty or pain. No calf pain with palpation. She is unable to actively lift her leg at this time. Mild hip pain with internal/external rotation. Neurovascular status to the lower extremity is intact. - Labs CBC & Chem 7: 02/14/18 07:11 Labs: Abnormal Lab Results - Last 24 Hours (Table) 02/15/18 Range/Units 07:17 PT 26.9 H (9.0-12.0) sec INR 3.0 H (<1.2) Assessment and Plan (1) Osteoarthritis of left hip Current Visit: Yes Status: Acute Code(s): M16.12 - UNILATERAL PRIMARY OSTEOARTHRITIS, LEFT HIP SNOMED Code(s): 112323996713791 (2) Status post total hip replacement, left Current Visit: Yes Status: Acute Code(s): Z96.642 - PRESENCE OF LEFT ARTIFICIAL HIP JOINT SNOMED Code(s): 788190939385 Plan: The clinical findings are discussed with the patient. She is electing to go to inpatient rehab. We plan discharged to inpatient rehab tomorrow if cleared medically.
[2018-02-15] MEDS: RANOLAZINE 500 MG TAB.ER.12H PO SCH ×2 (09:26→20:48)
[2018-02-15] MEDS: CITALOPRAM HYDROBROMIDE 10 MG TAB PO SCH (09:26)
--- NOTE | 2018-02-15 11:57 | P.PN ---
Subjective This is a pleasant 67 years old female with past medical history of GERD, hypertension, hyperlipidemia, coronary artery disease, osteoarthritis. She presents for elective left total hip arthroplasty. Severe degenerative joint disease. Today is postoperative day 1 Patient seen and examined by me at bedside. No chest pain. No dyspnea. No chest neuro bowel habits. No fever. Patient still needed for pain is controlled. Patient states that she sees Dr. Shelton as her PCP 02/15/2018 Patient lying in bed not in distress however she complains from pain at the surgical sites which is controlled with pain medication. No change in urine bowel habits. No chest pain. No dyspnea. No fever Objective - Vital Signs Vital signs: Vital Signs Temp 98.8 F 02/15/18 07:00 Pulse 56 L 02/15/18 07:00 Resp 16 02/15/18 07:00 BP 105/64 02/15/18 07:00 Pulse Ox 91 L 02/15/18 07:00 Intake & Output 02/14/18 02/15/18 02/15/18 18:59 06:59 18:59 Intake Total 640 1562.5 Balance 640 1562.5 Intake: Intake, IV Titration 1562.5 Amount Sodium Chloride 0.9% 1, 1562.5 000 ml @ 125 mls/hr IV . Q8H [facility] Rx#:[id number] Oral 640 Other: Voiding Method Bedside Commode # Voids 2 2 - Exam GENERAL: The patient is alert and oriented x3, not in any acute distress. Well developed, well nourished. HEENT: Pupils are round and equally reacting to light. EOMI. No scleral icterus. No conjunctival pallor. Normocephalic, atraumatic. No pharyngeal erythema. No thyromegaly. CARDIOVASCULAR: S1 and S2 present. No murmurs, rubs, or gallops. PULMONARY: Chest is clear to auscultation, no wheezing or crackles. ABDOMEN: Soft, nontender, nondistended, normoactive bowel sounds. No palpable organomegaly. MUSCULOSKELETAL: No joint swelling or deformity. EXTREMITIES: No cyanosis, clubbing, or pedal edema. -Fracture site looks clean with a dressing in place with no surrounding cellulitis. Further examination of the wound is deferred to the primary team NEUROLOGICAL: Gross neurological examination did not reveal any focal deficits. SKIN: No rashes. - Labs CBC & Chem 7: 09/25/18 07:11 Labs: Abnormal Lab Results - Last 24 Hours (Table) 02/15/18 Range/Units 07:17 PT 26.9 H (9.0-12.0) sec INR 3.0 H (<1.2) Assessment and Plan Assessment: Degenerative joint disease Status post left total hip arthroplasty GERD hypertension hyperlipidemia h/o coronary artery disease Plan: This is a pleasant 67 years old female who presents for left total hip arthroplasty. Continue same treatment. Continue with symptom with treatment. Resume home medications. Monitor vitals and labs. Pain management and DVT prophylaxis as per primary team. GI prophylaxis. Further recommendations based on the clinical course Plan for patient to going home with home health care Patient instructed to follow up with her primary care doctor in 1 week Consulting us, contact us for any further question or clarification
[2018-02-15] MEDS ORDERED: WARFARIN 2 MG TAB PO ONE (18:00)
[2018-02-15] MEDS: PRAVASTATIN SODIUM 80 MG TAB PO SCH (20:48)
[2018-02-15] MEDS: SENNOSIDES-DOCUSATE SODIUM 1 EACH TAB PO SCH (20:48)
[2018-02-16] MEDS: HYDROcodone/APAP 5-325MG 1 EACH TAB PO PRN ×3 (00:02→15:32)
[2018-02-16 07:15] LABS: Basophils % (A) 1 %; Eosinophils # (A) 0.2 k/uL (0-0.7); Eosinophils % (A) 3 %; HCT 30.6 % (34.0-46.0); HGB 9.7 gm/dL (11.4-16.0); Hypochromasia Slight; Lymphocytes # (A) 1.4 k/uL (1.0-4.8); Lymphocytes % (A) 20 %; MCH 29.9 pg (25.0-35.0); MCHC 31.7 g/dL (31.0-37.0); MCV 94.2 fL (80.0-100.0); Mean Platelet Volume 6.7; Monocytes # (A) 0.4 k/uL (0-1.0); Monocytes % (A) 6 %; Neutrophils # (A) 4.7 k/uL (1.3-7.7); Neutrophils % (A) 70 %; Platelet Count 166 k/uL (150-450); RBC 3.25 m/uL (3.80-5.40); RDW 14.1 % (11.5-15.5); WBC 6.7 k/uL (3.8-10.6)
[2018-02-16 07:26] LABS: INR 2.6 (<1.2); Prothrombin Time 22.9 sec (9.0-12.0)
--- NOTE | 2018-02-16 08:22 | P.PN ---
Subjective Progress Note Date: 02/16/18 Principal diagnosis: status post total left hip arthroplasty This is a 67-year-old female status post total left hip replacement. She complains of shortness of breath today. Her pulse ox was 83 this morning when checked by the nurse. She is currently on oxygen per nasal cannula. Her pulse ox currently is 93. Objective - Vital Signs Vital signs: Vital Signs Temp 98.8 F 02/16/18 07:27 Pulse 70 02/16/18 07:27 Resp 22 02/16/18 07:39 BP 94/57 02/16/18 07:27 Pulse Ox 93 L 02/16/18 07:39 Intake & Output 02/15/18 02/16/18 02/16/18 18:59 06:59 18:59 Intake Total 1552 2000 Output Total 500 Balance 1552 1500 Intake: Intake, IV Titration 812 2000 Amount Sodium Chloride 0.9% 1, 812 2000 000 ml @ 125 mls/hr IV . Q8H [facility] Rx#:[id number] Oral 740 Output: Urine 500 Other: Voiding Method Bedside Commode Diaper # Voids 1 - Exam 67-year-old female in no acute distress. Alert and oriented 3. Nasal cannula in place. Exam of the left hip reveals that her incision is clean and dry. No drainage. She has full foot and ankle motion without difficulty or pain. No calf pain with palpation. She is unable to actively lift her leg at this time. Mild hip pain with internal/external rotation. Neurovascular status to the lower extremity is intact. - Labs CBC & Chem 7: 02/16/18 06:18 Labs: Abnormal Lab Results - Last 24 Hours (Table) 02/16/18 02/16/18 Range/Units 06:18 06:18 RBC 3.25 L (3.80-5.40) m/uL Hgb 9.7 L (11.4-16.0) gm/dL Hct 30.6 L (34.0-46.0) % PT 22.9 H (9.0-12.0) sec INR 2.6 H (<1.2) Assessment and Plan (1) Osteoarthritis of left hip Current Visit: Yes Status: Acute Code(s): M16.12 - UNILATERAL PRIMARY OSTEOARTHRITIS, LEFT HIP SNOMED Code(s): 321543373947694 (2) Status post total hip replacement, left Current Visit: Yes Status: Acute Code(s): Z96.642 - PRESENCE OF LEFT ARTIFICIAL HIP JOINT SNOMED Code(s): 855832235179 Plan: The clinical findings are discussed with the patient. Due to her sudden decrease and O2 saturation I've ordered a CT of the chest to rule out PE. She is electing to go to inpatient rehab. We plan discharged to inpatient rehab when cleared medically.
[2018-02-16 08:55] LABS: ALT 31 U/L (9-52); AST 29 U/L (14-36); Albumin 2.4 g/dL (3.5-5.0); Alkaline Phosphatase 87 U/L (38-126); Anion Gap 5 mmol/L; Blood Urea Nitrogen 13 mg/dL (7-17); Calcium 7.6 mg/dL (8.4-10.2); Carbon Dioxide 20 mmol/L (22-30); Chloride 114 mmol/L (98-107); Glucose 101 mg/dL (74-99); Potassium 4.2 mmol/L (3.5-5.1); Sodium 139 mmol/L (137-145); Total Bilirubin 0.5 mg/dL (0.2-1.3); Total Protein 4.5 g/dL (6.3-8.2)
[2018-02-16] MEDS: RANOLAZINE 500 MG TAB.ER.12H PO SCH ×2 (08:58→20:10)
[2018-02-16] MEDS: CITALOPRAM HYDROBROMIDE 10 MG TAB PO SCH (08:58)
[2018-02-16] MEDS: SODIUM CHLORIDE 0.9% 1,000 ML IV SCH ×2 (08:59→16:33)
--- NOTE | 2018-02-16 12:05 | CT ---
CT CHEST FOR PULMONARY EMBOLISM. EXAMINATION TYPE: CT chest angio for PE DATE OF EXAM: 02/16/2018 INDICATION: Recent surgery CT DLP: 634 mGycm, Automated exposure control for dose reduction was used. CONTRAST: Patient injected with 72 mL of Isovue 370. COMPARISON: None TECHNIQUE: CT of the chest is performed on a spiral scan at 2 mm thick sections. Study is performed with intravenous contrast timed for evaluation for pulmonary embolism. This will limit additional po rtions of the evaluation. 3-D MIP images reconstructed by the technologist are reviewed on the compu ter in the coronal and sagittal planes. FINDINGS: No persistent filling defects are evident to suggest an acute pulmonary embolism. No mediastinal or hilar adenopathy enlarged by CT criteria is evident. The ascending aorta diameter at the level of the main pulmonary artery is 3.7 cm. The main pulmonary artery diameter at the bifur cation is 2.7 cm. Small right and minimal left pleural effusion is present. Some compressive atelectasis appears to be adjacent. There is some fullness of the inferior renal collecting systems. Small splenule may be present. IMPRESSIONS: 1. No acute pulmonary embolism.
--- NOTE | 2018-02-16 12:40 | P.PN ---
Subjective This is a pleasant 67 years old female with past medical history of GERD, hypertension, hyperlipidemia, coronary artery disease, osteoarthritis. She presents for elective left total hip arthroplasty. Severe degenerative joint disease. Today is postoperative day 1 Patient seen and examined by me at bedside. No chest pain. No dyspnea. No chest neuro bowel habits. No fever. Patient still needed for pain is controlled. Patient states that she sees Dr. Shelton as her PCP 02/15/2018 Patient lying in bed not in distress however she complains from pain at the surgical sites which is controlled with pain medication. No change in urine bowel habits. No chest pain. No dyspnea. No fever 02/16/2018 Patient is seen and examined by me at bedside, she was lying in bed not in distress, her pain at the surgical site is controlled with pain medication. Patient was on oxygen via nasal cannula at 3 L/m. Her oxygen saturation dropped today 22 3 on room air. However patient could not tell she is dyspneic total the nurse told her that her oxygen is low. Patient is already on Coumadin for DVT prophylaxis by the primary team and she got, 2 mg the last few days and today 3 mg. Her INR currently is 2.6. Recommend to keep monitoring her INR and hemoglobin closely. CT of the chest has been ordered and the result is pending. Rest of the labs and medication were reviewed. Unremarkable CBC and BMP except for mild anemia at 9.7. liver enzymes within normal limits. Prognosis remains guarded. We recommend to continue with IV hydration but lower the rate to 75 L/h, as to decrease the risk of pulmonary congestion and fluid overload CONSTITUTIONAL: No fever, no malaise, no fatigue. HEENT: No recent visual problems or hearing problems. Denied any sore throat. CARDIOVASCULAR: No orthopnea, PND, no palpitations, no syncope. PULMONARY: No shortness of breath, no cough, no hemoptysis. GASTROINTESTINAL: No diarrhea, no nausea, no vomiting, no abdominal pain. Normoactive bowel sounds. NEUROLOGICAL: No headaches, no weakness, no numbness. HEMATOLOGICAL: Denies any bleeding or petechiae. GENITOURINARY: Denies any burning micturition, frequency, or urgency. MUSCULOSKELETAL/RHEUMATOLOGICAL: Denies any joint pain, swelling, or any muscle pain. ENDOCRINE: Denies any polyuria or polydipsia. 14 point systemic review were reviewed Medications with dosages were diffuse and including the following: Calcium carbonate 1 tablet, Celexa 10 mg, ferrous sulfate 325 mg twice a day, [place] 5- 325 mg, Dilaudid 0.5 mg, Ringer lactate at 20 mL/h Lidocaine topical 1%, milk of magnesia 2400 mg, Coumadin per pharmacy, Zofran 4 mg, Pravachol 80 mg, Ranexa 1000 mg, Senokot-S, sodium chloride at 1 25 L/h, Objective - Vital Signs Vital signs: Vital Signs Temp 98.8 F 02/16/18 07:27 Pulse 70 02/16/18 07:27 Resp 22 02/16/18 07:39 BP 94/57 02/16/18 07:27 Pulse Ox 93 L 02/16/18 07:39 Intake & Output 02/15/18 02/16/18 02/16/18 18:59 06:59 18:59 Intake Total 1552 2000 100 Output Total 500 Balance 1552 1500 100 Intake: Intake, IV Titration 812 2000 Amount Sodium Chloride 0.9% 1, 812 2000 000 ml @ 125 mls/hr IV . Q8H [facility] Rx#:[id number] Oral 740 100 Output: Urine 500 Other: Voiding Method Bedside Commode Diaper # Voids 1 - Exam GENERAL: The patient is alert and oriented x3, not in any acute distress. Well developed, well nourished. HEENT: Pupils are round and equally reacting to light. EOMI. No scleral icterus. No conjunctival pallor. Normocephalic, atraumatic. No pharyngeal erythema. No thyromegaly. CARDIOVASCULAR: S1 and S2 present. No murmurs, rubs, or gallops. PULMONARY: Chest is clear to auscultation, no wheezing or crackles. ABDOMEN: Soft, nontender, nondistended, normoactive bowel sounds. No palpable organomegaly. MUSCULOSKELETAL: No joint swelling or deformity. EXTREMITIES: No cyanosis, clubbing, or pedal edema. -Fracture site looks clean with a dressing in place with no surrounding cellulitis. Further examination of the wound is deferred to the primary team NEUROLOGICAL: Gross neurological examination did not reveal any focal deficits. SKIN: No rashes. - Labs CBC & Chem 7: 02/16/18 06:18 02/16/18 06:18 Labs: Abnormal Lab Results - Last 24 Hours (Table) 02/16/18 02/16/18 02/16/18 Range/Units 06:18 06:18 06:18 RBC 3.25 L (3.80-5.40) m/uL Hgb 9.7 L (11.4-16.0) gm/dL Hct 30.6 L (34.0-46.0) % PT 22.9 H (9.0-12.0) sec INR 2.6 H (<1.2) Chloride 114 H (98-107) mmol/L Carbon Dioxide 20 L (22-30) mmol/L Glucose 101 H (74-99) mg/dL Calcium 7.6 L (8.4-10.2) mg/dL Total Protein 4.5 L (6.3-8.2) g/dL Albumin 2.4 L (3.5-5.0) g/dL Assessment and Plan Assessment: Acute hypoxemic respiratory failure, her oxygen saturation went up to 93% on 3 L oxygen via nasal cannula Degenerative joint disease Status post left total hip arthroplasty GERD hypertension hyperlipidemia h/o coronary artery disease Plan: This is a pleasant 67 years old female who presents for left total hip arthroplasty. Continue same treatment. Continue with symptom with treatment. Resume home medications. Monitor vitals and labs. Pain management and DVT prophylaxis as per primary team. Monitor oxygen level. GI prophylaxis. Further recommendations based on the clinical course Plan for patient to going home with home health care Patient instructed to follow up with her primary care doctor in 1 week Consulting us, contact us for any further question or clarification
[2018-02-16] MEDS: CALCIUM CARB-VIT D 500MG-200UN 1 EACH TAB PO SCH (17:28)
[2018-02-16] MEDS: FERROUS SULFATE 325 MG TAB PO SCH (17:28)
[2018-02-16] MEDS ORDERED: WARFARIN 3 MG TAB PO ONE (18:00)
[2018-02-16] MEDS: SENNOSIDES-DOCUSATE SODIUM 1 EACH TAB PO SCH (20:10)
[2018-02-16] MEDS: PRAVASTATIN SODIUM 80 MG TAB PO SCH (20:10)
[2018-02-17 01:02] VITALS: RESP 15
[2018-02-17] MEDS: SODIUM CHLORIDE 0.9% 1,000 ML IV SCH (04:39)
[2018-02-17] MEDS: HYDROcodone/APAP 5-325MG 1 EACH TAB PO PRN ×3 (04:40→13:18)
[2018-02-17] MEDS: LACTATED RINGERS 1,000 ML IV SCH (05:22)
[2018-02-17 08:19] LABS: INR 1.8 (<1.2); Prothrombin Time 16.4 sec (9.0-12.0)
[2018-02-17] MEDS ORDERED: KETOROLAC 30 MG/ML 1 ML VIAL IVP STA (08:50)
[2018-02-17] MEDS: RANOLAZINE 500 MG TAB.ER.12H PO SCH (09:16)
[2018-02-17] MEDS: FERROUS SULFATE 325 MG TAB PO SCH (09:17)
[2018-02-17] MEDS: CITALOPRAM HYDROBROMIDE 10 MG TAB PO SCH (09:17)
[2018-02-17] MEDS: CALCIUM CARB-VIT D 500MG-200UN 1 EACH TAB PO SCH (09:17)
--- NOTE | 2018-02-17 11:51 | XR ---
AP pelvis HISTORY: Status post total hip arthroplasty, pain Single frontal view of the pelvis is submitted. Correlation to left hip dated 02/13/2018 Patient is status post left hip arthroplasty. There is no evident fracture or dislocation. View is fr og leg position. Right hip shows marked osteoarthritic change, possible osteonecrosis and femoral hea d collapse laterally. Surgical clips are present in the pelvis. Bone mineralization is reduced. IMPRESSION: Postop changes, findings in the right hip and left hip as described.
--- NOTE | 2018-02-17 11:52 | US ---
EXAMINATION TYPE: US venous doppler duplex LE LT DATE OF EXAM: 02/17/2018 11:01 AM COMPARISON: NONE CLINICAL HISTORY: r/t dvt. Left leg pain, left hip replacement 4 days ago, patient on blood thinners, exam done portable. SIDE PERFORMED: Right TECHNIQUE: The lower extremity deep venous system is examined utilizing real time linear array sonog rakesh with graded compression, doppler sonography and color-flow sonography. VESSELS IMAGED: External Iliac Vein (EIV) Common Femoral Vein Deep Femoral Vein Greater Saphenous Vein * Femoral Vein Popliteal Vein Small Saphenous Vein * Proximal Calf Veins (* superficial vessels) Patient laying flat for exam, unable to incline bed for better visualization of veins due to patient unable to tolerate moving position. Left Leg: Appears negative for DVT No abnormal luminal echoes, venous waveforms are normal, there is normal compressibility. IMPRESSION: Exam is somewhat limited. No evident deep venous thrombosis at or above the left knee. Fo llow-up as indicated.
--- NOTE | 2018-02-17 12:04 | P.DS ---
Providers Date of admission: 02/13/18 10:44 Expected date of discharge: 02/17/18 Attending physician: Jamil Cage Consults: 02/13/18 14:54 Consult Physician Routine Consulting Provider: Brice Leon Consult Reason/Comments: medical management Do you want consulting provider notified?: Yes Primary care physician: Livia Ortega - Discharge Diagnosis(es) (1) Osteoarthritis of left hip Current Visit: Yes Status: Acute (2) Status post total hip replacement, left Current Visit: Yes Status: Acute Hospital Course: This is a 67-year-old female with known history of degenerative arthritis of the left hip. The patient presents for evaluation. After discussion and consideration patient elects to proceed with total hip arthroplasty. The patient is seen preoperatively by her primary care physician and cleared for surgery. Patient is admitted to [facility] on 02/13/2018 for total hip arthroplasty. The patient has had difficulty with pain management postoperatively. She has been refusing to get out of bed other than to the commode chair. A CT of the chest is negative for PE. She developed some atelectasis postoperatively and had a pulse ox of 83 on postop day #2. She is currently on 3 L of O2 per nasal cannula with a pulse ox of 96. Pelvis x-rays were taken on 02/17/2018 which show good position and alignment of the prosthesis and no acute fractures. Venous doppler is negative for DVT. Labs and vital signs are stable on day of discharge. On day of discharge patient's hip incision is healing well. There is minimal erythema. There is no drainage noted at this time. There is minimal soft tissue swelling to the hip and thigh. Patient has full foot and ankle motion without difficulty or pain. Neurovascular status to the left lower extremity is intact. Patient is discharged to home in good condition. Please see med rec for accurate list of home meds. Patient Condition at Discharge: Stable Plan - Discharge Summary Discharge Rx Participant: No New Discharge Prescriptions: New HYDROcodone/APAP 5-325MG [Knox 5-325] 1 - 2 each PO Q4-6H PRN #50 tab PRN Reason: Pain Sennosides-Docusate Sodium [Senokot-S] 1 tab PO BID #60 tablet Warfarin [Coumadin] 2.5 mg PO DAILY #1 tab No Action Multivitamins, Thera [Multivitamin (formulary)] 1 tab PO DAILY Fish Oil/Dha/Epa [Fish Oil 1,200 mg Fish Oil] 1 cap PO DAILY Citalopram Hydrobromide [CeleXA] 10 mg PO DAILY Metoprolol Tartrate [Lopressor] 50 mg PO BID Isosorbide Mononitrate [Imdur] 120 mg PO DAILY amLODIPine [Norvasc] 5 mg PO DAILY HYDROcodone/APAP 7.5-325MG [Knox 7.5-325] 1 tab PO Q4-6H PRN PRN Reason: Pain Omeprazole [PriLOSEC] 20 mg PO DAILY PRN PRN Reason: Heartburn Ranolazine [Ranexa] 1,000 mg PO BID Pravastatin Sodium [Pravachol] 80 mg PO HS Discharge Medication List Fish Oil/Dha/Epa [Fish Oil 1,200 mg Fish Oil] 1 cap PO DAILY 09/06/14 [History] Multivitamins, Thera [Multivitamin (formulary)] 1 tab PO DAILY 09/06/14 [History ] Citalopram Hydrobromide [CeleXA] 10 mg PO DAILY 09/07/14 [History] Isosorbide Mononitrate [Imdur] 120 mg PO DAILY 09/07/14 [History] Metoprolol Tartrate [Lopressor] 50 mg PO BID 09/07/14 [History] amLODIPine [Norvasc] 5 mg PO DAILY 09/07/14 [History] HYDROcodone/APAP 7.5-325MG [Knox 7.5-325] 1 tab PO Q4-6H PRN 02/08/18 [History] Omeprazole [PriLOSEC] 20 mg PO DAILY PRN 02/08/18 [History] Pravastatin Sodium [Pravachol] 80 mg PO HS 02/08/18 [History] Ranolazine [Ranexa] 1,000 mg PO BID 02/08/18 [History] HYDROcodone/APAP 5-325MG [Knox 5-325] 1 - 2 each PO Q4-6H PRN #50 tab 02/13/18 [Rx] Sennosides-Docusate Sodium [Senokot-S] 1 tab PO BID #60 tablet 02/13/18 [Rx] Warfarin [Coumadin] 2.5 mg PO DAILY #1 tab 02/13/18 [Rx] Follow up Appointment(s)/Referral(s): Gia Henry, PAC [PHYSICIAN RESEARCH AND EVALUATION MANAGER] - 03/02/18 2:00 pm Ambulatory/Diagnostic Orders: Prothrombin Time INR [LAB.AMB] Location: None Selected Activity/Diet/Wound Care/Special Instructions: may shower if no drainage from incision. toe touch weight bearing with walker, LLE Discharge Disposition: HOME WITH HOME HEALTH SERVICES
[2018-02-17 14:09] VITALS: BP 117/76; PULSE 71; TEMP 98.2
[2018-02-17] MEDS ORDERED: WARFARIN 5 MG TAB PO ONE (18:00)
--- NOTE | 2018-02-17 18:12 | P.PN ---
Subjective This is a pleasant 67 years old female with past medical history of GERD, hypertension, hyperlipidemia, coronary artery disease, osteoarthritis. She presents for elective left total hip arthroplasty. Severe degenerative joint disease. Today is postoperative day 1 Patient seen and examined by me at bedside. No chest pain. No dyspnea. No chest neuro bowel habits. No fever. Patient still needed for pain is controlled. Patient states that she sees Dr. Shelton as her PCP 02/15/2018 Patient lying in bed not in distress however she complains from pain at the surgical sites which is controlled with pain medication. No change in urine bowel habits. No chest pain. No dyspnea. No fever 02/16/2018 Patient is seen and examined by me at bedside, she was lying in bed not in distress, her pain at the surgical site is controlled with pain medication. Patient was on oxygen via nasal cannula at 3 L/m. Her oxygen saturation dropped today 22 3 on room air. However patient could not tell she is dyspneic total the nurse told her that her oxygen is low. Patient is already on Coumadin for DVT prophylaxis by the primary team and she got, 2 mg the last few days and today 3 mg. Her INR currently is 2.6. Recommend to keep monitoring her INR and hemoglobin closely. CT of the chest has been ordered and the result is pending. Rest of the labs and medication were reviewed. Unremarkable CBC and BMP except for mild anemia at 9.7. liver enzymes within normal limits. Prognosis remains guarded. We recommend to continue with IV hydration but lower the rate to 75 L/h, as to decrease the risk of pulmonary congestion and fluid overload 02/17/2018 pt is seen and examined . She had some pain at the surgical site, and already evaluated by the surgical team the wound looks clean with no signs of bleeding so discharge with no surrounding cellulitis and no swelling. Some workup has been ordered like x-ray and venous Doppler and were negative. And by the time I saw the patient she still have some pain at the surgical site but this was significantly improved from earlier. Patient is going to be discharged to rehab today per surgical team. Pain and DVT prophylaxis were managed by the primary team. However prescription was not available and I helped in providing the prescription for the patient's otherwise she will stay until tomorrow. Patient vitals looks stable. And she is asked saturating 96% on 3 L via NC. Labs reviewed with WBC: 6.7K. Hemoglobin 9.7. Patient was started on vitamin D /calcium as well as iron pills. Patient denies any other complaints. She denies chest pain. No dyspnea. No abdominal pain. No nausea vomiting. No change in urine or bowel habits. No fever Objective - Vital Signs Vital signs: Vital Signs Temp 98.2 F 02/17/18 13:20 Pulse 71 02/17/18 13:20 Resp 15 02/17/18 13:20 BP 117/76 02/17/18 13:20 Pulse Ox 96 02/17/18 13:20 Intake & Output 02/16/18 02/17/18 02/17/18 18:59 06:59 18:59 Intake Total 1460 450 350 Balance 1460 450 350 Intake: IV 350 Sodium Chloride 0.9% 1, 350 000 ml @ 50 mls/hr IV . Q20H JAVY Rx#:[id number] Intake, IV Titration 1000 450 Amount Sodium Chloride 0.9% 1, 1000 450 000 ml @ 50 mls/hr IV . Q20H JAVY Rx#:[id number] Oral 460 0 Other: Voiding Method Diaper Incontinent # Voids 3 5 # Bowel Movements 1 - Exam GENERAL: The patient is alert and oriented x3, not in any acute distress. Well developed, well nourished. HEENT: Pupils are round and equally reacting to light. EOMI. No scleral icterus. No conjunctival pallor. Normocephalic, atraumatic. No pharyngeal erythema. No thyromegaly. CARDIOVASCULAR: S1 and S2 present. No murmurs, rubs, or gallops. PULMONARY: Chest is clear to auscultation, no wheezing or crackles. ABDOMEN: Soft, nontender, nondistended, normoactive bowel sounds. No palpable organomegaly. MUSCULOSKELETAL: No joint swelling or deformity. EXTREMITIES: No cyanosis, clubbing, or pedal edema. -Fracture site looks clean with a dressing in place with no surrounding cellulitis. No discharge or bleeding noted. No swelling Further examination of the wound is deferred to the primary team NEUROLOGICAL: Gross neurological examination did not reveal any focal deficits. SKIN: No rashes. - Labs CBC & Chem 7: 02/16/18 06:18 02/16/18 06:18 Labs: Abnormal Lab Results - Last 24 Hours (Table) 09/28/18 Range/Units 07:34 PT 16.4 H (9.0-12.0) sec INR 1.8 H (<1.2) Assessment and Plan Assessment: Acute hypoxemic respiratory failure, her oxygen saturation went up to 96% on 3 L oxygen via nasal cannula, resolved. So due to atelectasis with excessive pain medication Degenerative joint disease.Status post left total hip arthroplasty GERD hypertension hyperlipidemia h/o coronary artery disease Plan: This is a pleasant 67 years old female who presents for left total hip arthroplasty. Continue same treatment. Continue with symptom with treatment. Resume home medications. Monitor vitals and labs. Pain management and DVT prophylaxis as per primary team. Monitor oxygen level. GI prophylaxis. Further recommendations based on the clinical course Plan for patient to going home with home health care Patient instructed to follow up with her primary care doctor in 1 week Consulting us, contact us for any further question or clarification
== END 2018-02-17 15:33 | disposition home health service (06) | DRG 469 ==
LOC: 2ORMAIN 10:44 → 3SUR 14:52
PROVIDERS: ADMIT Orthopaedic Surgery; ATTEND Orthopaedic Surgery
PROC: 0SRB04A Replacement of Left Hip Joint with Ceramic on Polyethylene Synthetic Substitute, Uncemented, Open Approach (ICD-10-PCS; principal; 2018-02-13 12:30)
DX: M16.0 Bilateral primary osteoarthritis of hip (principal); J96.01 Acute respiratory failure with hypoxia; J98.11 Atelectasis; Z79.891 Long term (current) use of opiate analgesic; Z79.899 Other long term (current) drug therapy; E78.5 Hyperlipidemia, unspecified; Z87.891 Personal history of nicotine dependence; I10 Essential (primary) hypertension; I25.10 Atherosclerotic heart disease of native coronary artery without angina pectoris; I25.2 Old myocardial infarction; K21.9 Gastro-esophageal reflux disease without esophagitis; Z79.01 Long term (current) use of anticoagulants; Z83.3 Family history of diabetes mellitus; Z90.710 Acquired absence of both cervix and uterus
CPT/HCPCS: 71275; 72170; 73501; 80053; 85025; 85610; 86850; 86900; 86901; 88300

== ENCOUNTER → 2018-05-18 | Outpatient (CLI) | payer MEDICARE, OTHER ==
[2018-05-18 15:52] LABS: HCT 41.4 % (34.0-46.0); HGB 13.9 gm/dL (11.4-16.0); MCH 29.7 pg (25.0-35.0); MCHC 33.5 g/dL (31.0-37.0); MCV 88.4 fL (80.0-100.0); Mean Platelet Volume 6.8; Platelet Count 240 k/uL (150-450); RBC 4.68 m/uL (3.80-5.40); RDW 14.7 % (11.5-15.5); WBC 7.5 k/uL (3.8-10.6)
[2018-05-18 15:54] LABS: Appearance,Urine Clear (Clear); Bilirubin,Urine Negative (Negative); Blood,Urine Negative (Negative); Color,Urine Yellow; Glucose,Urine (UA) Negative (Negative); Ketones,Urine Negative (Negative); Leukocyte Esterase,Urine Negative (Negative); Nitrite,Urine Negative (Negative); Protein,Urine Negative (Negative); Urobilinogen,Urine <2.0 mg/dL (<2.0)
[2018-05-18 16:09] LABS: Calcium 9.7 mg/dL (8.4-10.2); Potassium 4.6 mmol/L (3.5-5.1); Total Bilirubin 0.5 mg/dL (0.2-1.3); Total Protein 6.5 g/dL (6.3-8.2)
[2018-05-18 16:10] LABS: INR 0.9 (<1.2); Prothrombin Time 10.1 sec (9.0-12.0)
[2018-05-18 16:11] LABS: Partial Thromboplastin Time 21.2 sec (22.0-30.0)
== END | disposition home or self-care (01) ==
LOC: LABPAT 15:16
PROVIDERS: ATTEND Orthopaedic Surgery
DX: Z01.812 Encounter for preprocedural laboratory examination (principal)
CPT/HCPCS: 80053; 81003; 85027; 85610; 85730; 87070

== ENCOUNTER 2018-05-29 13:41 | Inpatient (IN) | payer MEDICARE, OTHER ==
[2018-05-17 09:56] VITALS: BMI 32.2
[~2018-05-29 13:41] MED LIST changes: -HYDROmorphone 0.5 MG/0.5 ML SYRINGE IVP PRN; +MIDAZOLAM (PF) 2 MG/2 ML VIAL IV PRN; +fentaNYL (PF) 50 MCG/ML 2 ML AMP IV PRN
[2018-05-29] MEDS: LACTATED RINGERS 1,000 ML IV SCH (14:21)
[2018-05-29] MEDS ORDERED: DEXAMETHASONE SOD PHOSPHATE 10 MG/ML 1 ML VIAL IV ONE (14:23)
[2018-05-29] MEDS ORDERED: ePHEDrine SULFATE/0.9% NACL/PF 50 MG/5 ML SYRINGE IV ONE (15:39)
[2018-05-29] MEDS ORDERED: PHENYLEPHRINE-0.9% NACL SYG 1 MG/10 ML SYRINGE ONE (15:39)
[2018-05-29] MEDS ORDERED: MIDAZOLAM 2 MG/2 ML VIAL ONE (15:39)
[2018-05-29] MEDS ORDERED: fentaNYL (PF) 50 MCG/ML 2 ML AMP ONE (15:39)
[2018-05-29] MEDS ORDERED: TRANEXAMIC ACID 1,000 MG/10 ML VIAL ONE (15:39)
[2018-05-29] MEDS ORDERED: WATER FOR INJECTION, STERILE 10 ML VIAL IV ONE (15:39)
[2018-05-29] MEDS ORDERED: PROPOFOL 10 MG/ML 20 ML VIAL IV ONE (15:39)
[2018-05-29] MEDS ORDERED: SODIUM CHLORIDE 0.9% 100 ML BAG ONE (15:39)
[2018-05-29] MEDS ORDERED: ROPIVACAINE 246.25 MG, EPINEPHrine 0.5 MG, KETOROLAC 30 MG, cloNIDine HCL/PF 80 MCG, WA... MISCELLANE ONE ×5 (15:58)
[2018-05-29] MEDS ORDERED: ceFAZolin 3,000 MG in SODIUM CHLORIDE 0.9% IRRIGATIO 3,000 ML IRRIGATION ONE (16:35)
[2018-05-29] MEDS ORDERED: LACTATED RINGERS 1,000 ML IV ONE (17:38)
--- NOTE | 2018-05-29 17:45 | P.OP ---
Date of Procedure: 05/29/18 Procedure(s) Performed: PREOPERATIVE DIAGNOSIS: Right hip severe osteoarthritis POSTOPERATIVE DIAGNOSIS: Right hip severe osteoarthritis OPERATION: Right hip total replacement arthroplasty (uncemented implantation with ceramic on polyethylene articulation). ANESTHESIA: Spinal ESTIMATED BLOOD LOSS: 250 ml. COUNTER CASER: Gia Henry PA-C (assistance with: patient positioning, retraction, exposure, hemostasis, leg positioning, implantation, irrigation, closure, dressing) COMPLICATIONS: None apparent. COMPONENTS IMPLANTED: Richelle continuum acetabular cup with cluster holes; continuum longevity 15 elevated liner, 32 mm id; Richelle VerSys Fiber Metal stem ; VerSys 32 mm femoral head with 0 mm neck length extension INDICATIONS: Mrs. Guerra is a 67 year old female with significant end-stage osteoarthritis involving the right hip and commensurate severe symptoms. She presents to the operating room today for total hip replacement. She has already successfully undergone left total hip replacement several months ago. I have discussed the steps of the operation as well as potential risks and complications as being inclusive of, but not limited to: Leading, infection, scarring, discomfort, or vessel and/or nerve damage, need for further surgery, loosening, dislocation, wear, osteolysis, limb length inequality, fracture, blood clot, pulmonary embolism, , persistent limp, and other risks. The patient is aware these risks and wishes to proceed with surgery and has signed a consent form. PROCEDURE: After appropriate consent was obtained, the patient was taken to the operating room and placed in supine position. Spinal anesthetic was administered and after confirmation of adequate anesthesia, the patient was placed into the lateral decubitus position with the right side up. Care was taken to make sure that all pressure points were adequately padded and he was stabilized to the table with a [place] hip positioner. The right hip was prepped and draped in the usual aseptic fashion using a combination of ChloraPrep and alcohol. [place] drape was used for the case and the patient received intravenous antibiotics prior to the incision. "Time out" was called , confirming patient identity, side, procedure, availability of implants and administration of antibiotics. The incision was created directly over the greater trochanter and carried slightly posteriorly for a posterior approach to the hip. The incision was then deepened down to subcutaneous tissue and fascia kindra. Fascia kindra was split in line with the incision and split proximally along the fibers of the gluteus jed. The underlying fibers of the muscle were teased apart using finger dissection and bleeding vessels were picked up and coagulated. Retractor was then placed posteriorly consisting of a blunt [place]. The short external rotators and capsule were exposed using good visualization of the attachment of the external rotators to the femur was established. The short external rotators and capsule were released using electrocautery from their femoral attachments. A hockey stick shaped incision was created in the capsule. Joint fluid was evacuated and the patient's hip was able to be dislocated fairly easily. The patient's femoral head was severely arthritic with eburnated bone present and a 360 degrees jones of osteophytes. The femoral neck cut was created approximately 1 cm superior to the lesser trochanter using a reciprocating saw. The femoral head and neck fragment was removed and attention was then directed to the acetabulum. An anterior acetabular retractor was applied followed by posterior retraction of the capsule with a [place] retractor. This afforded good visualization into the acetabular cavity. Soft tissue was removed and residual cartilage within the acetabular vault was removed using a curette. Labrum was removed using a long-handled knife. Attention was then directed to reaming. The size 44 reamer was used first, followed by increasing increments until the final size reamer was used. Please see the implantation sheet for exact sizes used for the components. Once the final reamer had been utilized to expand the socket it was noted that there was a good supportive bone around the acetabular socket and no further reaming needed to be performed. The trial the same size as the last reamer used was then impacted into the acetabular vault and found to have good fit. The acetabular component, one size (2mm) greater than the trial was then called for. The cluster holes were placed posteriorly and the component was impacted in a position of approximately 40 degrees abduction and 20 degrees anteversion. This matched this patient's [place] anteversion and it was noted that the cup had excellent stability without need for additional screw fixation. Attention was then directed to the acetabular liner. The anteversion and abduction angle of the component was noted to be very good. A 15 elevated liner was used and locked into position with the elevation posterior superior. Osteophytes around the anterior, posterior and inferior aspect of the acetabulum were trimmed as necessary to prevent any impingement. Attention was then directed back to the proximal femur. Retractors were placed around the proximal femur and box osteotome was used followed by canal finder and trochanteric reamer. Cylindrical reaming was performed. Progressive broaching was then performed starting with a #10 broach and progressing final size, in a position of 15 degrees anteversion. [place] anteversion was within 5 degrees of stem position. The final size broach had excellent fit and fill of the patient's metaphysis and diaphysis. Trial reduction was then performed starting with size 32 mm femoral head and various neck combination of stability , limb length equality, and soft tissue tension. Trial components were then removed. The canal was lavaged and the final size femoral stem component was impacted into position. The implant fit very well and had excellent stability. The femoral head was then impacted onto the Sharpe taper. Blood and debris were removed from the acetabular component and the hip was then reduced and checked for stability, limb length and soft tissue tension. These parameters found to be satisfactory, the wound was then thoroughly irrigated with normal saline. Final hemostasis was obtained using electrocautery and IV tranexamic acid, 1 g given at the time of prepping and draping, and another 1 g given at the time of closure. Local anesthetic solution consisting of ropivacaine with epinephrine, clonidine, and ketorolac was also used throughout the case targeting the capsule , fascia, and skin. Closure of the capsule was performed meticulously using #3 Vicryl suture. Four [id number] sutures were placed in the posterior capsule along with repair of the external rotators. The fascia kindra was then repaired using combination of #3 Vicryl suture in interrupted fashion and Quill and running fashion. 2-0 Vicryl suture was used for the subcutaneous tissues and 3-0 Quill for the skin. Dermabond or Steri-Strips were then applied. The patient tolerated the procedure well. There were no complications and the wound bed was dry and there was no need for drain placement. Sterile dressing was then applied and the patient was carefully removed from the operating room table , placed on the stretcher and was taken to the recovery room in stable condition. Sponge and needle counts were correct.
[2018-05-29] MEDS ORDERED: HYDROmorphone 0.5 MG/0.5 ML SYRINGE IVP PRN ×3 (18:10)
[2018-05-29] MEDS ORDERED: HYDROcodone/APAP 5-325MG 1 EACH TAB PO PRN (18:10)
[2018-05-29] MEDS ORDERED: ONDANSETRON 4 MG/2 ML VIAL IVP PRN (18:10)
[2018-05-29] MEDS ORDERED: MAGNESIUM HYDROXIDE 2,400 MG/10 ML CUP PO PRN (18:10)
[2018-05-29] MEDS ORDERED: NALOXONE 0.4 MG/ML 1 ML VIAL IV PRN (18:10)
[2018-05-29] MEDS ORDERED: hydrOXYzine PAMOATE 25 MG CAP PO PRN (18:10)
--- NOTE | 2018-05-29 18:43 | XR ---
EXAMINATION TYPE: XR Hip Limited RT DATE OF EXAM: 05/29/2018 CLINICAL HISTORY: Right hip pain and osteoarthritis. TECHNIQUE: Single AP portable view of right hip is obtained immediately postoperatively. COMPARISON: Pelvic x-ray February 17, 2018. FINDINGS: Metallic hardware from right hip arthroplasty is seen and appears satisfactory in alignment and position. There is evidence of recent surgery with subcutaneous gas and soft tissue swelling no demetrice laterally. There is partial visualization of numerous pelvic clips. IMPRESSION: Metallic hardware from right hip arthroplasty is satisfactory in position.
[2018-05-29] MEDS: SENNOSIDES-DOCUSATE SODIUM 1 EACH TAB PO SCH (23:54)
[2018-05-30] MEDS: ceFAZolin IN SWFI 2 GM/20 ML SYRINGE IVP SCH ×2 (00:12→08:23)
[2018-05-30] MEDS: LACTATED RINGERS 1,000 ML IV SCH ×4 (02:36→16:32)
[2018-05-30] MEDS: HYDROcodone/APAP 5-325MG 1 EACH TAB PO PRN ×3 (05:25→18:15)
[2018-05-30] MEDS: METOPROLOL TARTRATE 50 MG TAB PO SCH ×2 (08:21→22:07)
[2018-05-30] MEDS: MELOXICAM 7.5 MG TAB PO SCH (08:22)
[2018-05-30] MEDS: FAMOTIDINE 20 MG TAB PO SCH (08:23)
[2018-05-30] MEDS: RIVAROXABAN 10 MG TAB PO SCH (08:23)
[2018-05-30 09:28] LABS: Basophils % (A) 0 %; Eosinophils # (A) 0.1 k/uL (0-0.7); Eosinophils % (A) 0 %; HCT 36.1 % (34.0-46.0); HGB 11.9 gm/dL (11.4-16.0); Lymphocytes # (A) 1.6 k/uL (1.0-4.8); Lymphocytes % (A) 10 %; MCH 29.5 pg (25.0-35.0); MCHC 32.9 g/dL (31.0-37.0); MCV 89.9 fL (80.0-100.0); Mean Platelet Volume 7.5; Monocytes # (A) 0.7 k/uL (0-1.0); Monocytes % (A) 5 %; Neutrophils # (A) 13.2 k/uL (1.3-7.7); Neutrophils % (A) 84 %; Platelet Count 228 k/uL (150-450); RBC 4.02 m/uL (3.80-5.40); RDW 14.9 % (11.5-15.5); WBC 15.7 k/uL (3.8-10.6)
--- NOTE | 2018-05-30 11:58 | P.PN ---
Subjective Progress Note Date: 05/30/18 Principal diagnosis: Primary osteoarthritis right hip. Status post total right hip arthroplasty. This is a 67-year-old female who is status post total right hip arthroplasty. She is doing well from an orthopedic standpoint. She has no new complaints or concerns today. Vital signs are stable. White blood cell count is slightly elevated at 15.7. She denies fever, chills or shortness of breath. Objective - Vital Signs Vital signs: Vital Signs Temp 98.1 F 05/30/18 06:50 Pulse 66 05/30/18 06:50 Resp 18 05/30/18 06:50 BP 105/65 05/30/18 06:50 Pulse Ox 96 05/30/18 06:50 Intake & Output 05/29/18 05/30/18 05/30/18 18:59 06:59 18:59 Intake Total 1301.5 1780 Output Total 250 Balance 1051.5 1780 Intake: IV 1301.5 500 Intake, IV Titration 800 Amount Lactated Ringers 1,000 ml 800 @ 100 mls/hr IV .Q10H JAVY Rx#:[id number] Oral 480 Output: Estimated Blood Loss 250 Other: # Voids 1 1 - Exam This is a pleasant 67-year-old female in no acute distress. She is alert and oriented 3. Exam of the right hip reveals that her dressing is clean, dry and intact. She has full foot and ankle motion without difficulty or pain. Neurovascular status to the lower extremity is intact. - Labs CBC & Chem 7: 05/30/18 09:04 Labs: Abnormal Lab Results - Last 24 Hours (Table) 05/30/18 Range/Units 09:04 WBC 15.7 H (3.8-10.6) k/uL Neutrophils # 13.2 H (1.3-7.7) k/uL Assessment and Plan (1) Primary localized osteoarthritis of right hip Current Visit: Yes Status: Acute Code(s): M16.11 - UNILATERAL PRIMARY OSTEOARTHRITIS, RIGHT HIP SNOMED Code(s): 655896658 (2) Status post total replacement of right hip Current Visit: Yes Status: Acute Code(s): Z96.641 - PRESENCE OF RIGHT ARTIFICIAL HIP JOINT SNOMED Code(s): 281000479952 Plan: The clinical findings are discussed with the patient. She is to begin the physical therapy today. She is requesting transfer to inpatient rehab. We are planning transfer to rehab on this week.
[2018-05-30] MEDS: MULTIVITAMINS, THERA 1 EACH TAB PO SCH (12:06)
[2018-05-30 14:51] VITALS: RESP 16
--- NOTE | 2018-05-30 17:09 | P.CONS ---
History of Present Illness - Reason for Consult Recommendations regarding antihypertensive medications, leukocytosis - History of Present Illness 70-year-old pleasant female admitted for right hip arthroplasty successfully underwent surgery. Patient doesn't have any fever denied any cough runny nose chest pain nausea vomiting abdominal pain diarrhea. Patient denied any dysuria. Patient does have history of hypertension and is on beta jose and calcium from jose. Amlodipine will be held patient has expected postoperative hypotension. Patient did not pass gas yet does have good bowel sounds did not move her bowel yet . Review of Systems REVIEW OF SYSTEMS: CONSTITUTIONAL: No fever, no malaise, no fatigue. HEENT: No recent visual problems or hearing problems. Denied any sore throat. CARDIOVASCULAR: No chest pain, orthopnea, PND, no palpitations, no syncope. PULMONARY: No shortness of breath, no cough, no hemoptysis. GASTROINTESTINAL: No diarrhea, no nausea, no vomiting, no abdominal pain. NEUROLOGICAL: No headaches, no weakness, no numbness. HEMATOLOGICAL: Denies any bleeding or petechiae. GENITOURINARY: Denies any burning micturition, frequency, or urgency. MUSCULOSKELETAL/RHEUMATOLOGICAL: Denies any joint pain, swelling, or any muscle pain. ENDOCRINE: Denies any polyuria or polydipsia. The rest of the 14-point review of systems is negative. Past Medical History Past Medical History: GERD/Reflux, Hyperlipidemia, Hypertension, Myocardial Infarction (CA), Osteoarthritis (OA) Additional Past Medical History / Comment(s): " blood clot one of the arteries in my heart,Dr told me my bottom of my heart was working slower than the top part of my heart, no problems since that time" Last Myocardial Infarction Date:: FEB 2004 History of Any Multi-Drug Resistant Organisms: None Reported Past Surgical History: Breast Surgery, Hysterectomy, Orthopedic Surgery, Tonsillectomy Additional Past Surgical History / Comment(s): cataract surgery. Tonsillectomy, BREAST BIOPSY- RIGHT 2010, total left hip, bunion removed ion 2001 left foot Past Anesthesia/Blood Transfusion Reactions: No Reported Reaction Additional Past Anesthesia/Blood Transfusion Reaction / Comm: 1985 blood transfusion-no problems Past Psychological History: Anxiety Additional Psychological History / Comment(s): ANXIETY OCCASIONAL Smoking Status: Former smoker Past Alcohol Use History: None Reported Additional Past Alcohol Use History / Comment(s): STARTED SMOKING AT AGE 28 QUIT AT AGE 33 SMOKED 1/2PPD Past Drug Use History: None Reported - Past Family History Mother Family Medical History: Diabetes Mellitus, Deep Vein Thrombosis (DVT) Additional Family Medical History / Comment(s): type 1 DM Father Family Medical History: No Reported History Medications and Allergies Home Medications Medication Instructions Recorded Confirmed Type Multivitamins, Thera [Multivitamin 1 tab PO DAILY 09/06/14 05/29/18 History (formulary)] Isosorbide Mononitrate [Imdur] 120 mg PO QAM 09/07/14 05/29/18 History Metoprolol Tartrate [Lopressor] 50 mg PO BID 09/07/14 05/29/18 History amLODIPine [Norvasc] 5 mg PO QAM 09/07/14 05/29/18 History Pravastatin Sodium [Pravachol] 80 mg PO HS 02/08/18 05/29/18 History Ranolazine [Ranexa] 1,000 mg PO BID 02/08/18 05/29/18 History Calcium Carb-Vit D 500Mg-200Un 1 each PO DAILY 05/17/18 05/29/18 History [Oscal 500+D] Aspirin [Adult Low Dose Aspirin EC] 81 mg PO DAILY #1 tablet. 05/29/18 Rx HYDROcodone/APAP 5-325MG [[place] 1 - 2 each PO Q4-6H PRN #50 tab 05/29/18 Rx 5-325] Rivaroxaban [Xarelto] 10 mg PO DAILY #5 tab 05/29/18 Rx Sennosides-Docusate Sodium 1 tab PO BID #60 tablet 05/29/18 Rx [Senokot-S] Allergies Allergy/AdvReac Type Severity Reaction Status Date / Time No Known Allergies Allergy Verified 05/29/18 22:09 Physical Exam Vitals: Vital Signs Temp Pulse Pulse Pulse Resp BP BP 05/30/18 14:46 98.3 F 68 16 101/54 05/30/18 06:50 98.1 F 66 18 105/65 05/29/18 23:54 98.2 F 72 15 108/66 05/29/18 21:48 97.6 F 69 16 108/66 05/29/18 20:45 69 16 106/58 05/29/18 20:15 69 16 111/59 05/29/18 20:00 68 16 112/67 05/29/18 19:45 68 16 109/61 05/29/18 19:30 68 16 109/61 05/29/18 19:15 66 16 108/58 05/29/18 19:00 67 16 110/61 05/29/18 18:45 66 16 110/58 05/29/18 18:30 64 18 111/58 05/29/18 18:07 98 F 70 19 97/53 Pulse Ox 05/30/18 14:46 95 05/30/18 06:50 96 05/29/18 23:54 98 05/29/18 21:48 96 05/29/18 20:45 100 05/29/18 20:15 99 05/29/18 20:00 99 05/29/18 19:45 95 05/29/18 19:30 99 05/29/18 19:15 99 05/29/18 19:00 100 05/29/18 18:45 98 05/29/18 18:30 98 05/29/18 18:07 95 Intake and Output 05/30/18 05/30/18 05/30/18 06:59 14:59 22:59 Intake Total 1280 500 Balance 1280 500 Intake: IV 500 Lactated Ringers 1,000 ml 500 @ 100 mls/hr IV .Q10H JAVY Rx#:[id number] Intake, IV Titration 800 Amount Lactated Ringers 1,000 ml 800 @ 100 mls/hr IV .Q10H JAVY Rx#:[id number] Oral 480 Other: # Voids 1 2 PHYSICAL EXAMINATION: GENERAL: The patient is alert and oriented x3, not in any acute distress. Well developed, well nourished. HEENT: Pupils are round and equally reacting to light. EOMI. No scleral icterus. No conjunctival pallor. Normocephalic, atraumatic. No pharyngeal erythema. No thyromegaly. CARDIOVASCULAR: S1 and S2 present. No murmurs, rubs, or gallops. PULMONARY: Chest is clear to auscultation, no wheezing or crackles. ABDOMEN: Soft, nontender, nondistended, normoactive bowel sounds. No palpable organomegaly. MUSCULOSKELETAL: Deferred to orthopedic surgery EXTREMITIES: No cyanosis, clubbing, or pedal edema. NEUROLOGICAL: Gross neurological examination did not reveal any focal deficits. SKIN: No rashes. Results CBC & Chem 7: 05/30/18 09:04 Labs: Abnormal Lab Results - Last 24 Hours (Table) 05/30/18 Range/Units 09:04 WBC 15.7 H (3.8-10.6) k/uL Neutrophils # 13.2 H (1.3-7.7) k/uL Assessment and Plan Plan: -Leukocytosis no signs or symptoms of sepsis reactive seconded surgery no further intervention is necessary -Status post right hip arthroplasty pain management due to prophylaxis as per primary service -Hypertension hold off amlodipine to prevent perioperative hypotension which is expected postsurgery continue with beta jose -Hyperlipidemia -Coronary artery disease -Gastroesophageal reflux disease
[2018-05-30] MEDS ORDERED: TEMAZEPAM 15 MG CAP PO PRN (22:00)
[2018-05-30] MEDS: PRAVASTATIN SODIUM 80 MG TAB PO SCH (22:06)
[2018-05-30] MEDS: RANOLAZINE 500 MG TAB.ER.12H PO SCH (22:06)
[2018-05-30] MEDS: SENNOSIDES-DOCUSATE SODIUM 1 EACH TAB PO SCH (22:06)
[2018-05-31] MEDS: LACTATED RINGERS 1,000 ML IV SCH ×4 (05:49→23:18)
--- NOTE | 2018-05-31 08:23 | P.PN ---
Subjective Progress Note Date: 05/31/18 Principal diagnosis: Primary osteoarthritis right hip. Status post total right hip arthroplasty. This is a 67-year-old female who is status post total right hip arthroplasty. She is doing well from an orthopedic standpoint. She has no new complaints or concerns today. Vital signs are stable. White blood cell count is slightly elevated at 15.7. She denies fever, chills or shortness of breath. She rates her pain 7/10. Objective - Vital Signs Vital signs: Vital Signs Temp 98.5 F 05/31/18 07:46 Pulse 71 05/31/18 07:46 Resp 16 05/31/18 07:46 BP 123/76 05/31/18 07:46 Pulse Ox 93 L 05/31/18 07:46 Intake & Output 05/30/18 05/31/18 05/31/18 18:59 06:59 18:59 Intake Total 500 480 Balance 500 480 Intake: IV 500 Lactated Ringers 1,000 ml 500 @ 100 mls/hr IV .Q10H JAVY Rx#:[id number] Oral 480 Other: # Voids 2 1 - Exam This is a pleasant 67-year-old female in no acute distress. She is alert and oriented 3. Exam of the right hip reveals that her dressing is clean, dry and intact. She has full foot and ankle motion without difficulty or pain. Neurovascular status to the lower extremity is intact. - Labs CBC & Chem 7: 05/30/18 09:04 Labs: Abnormal Lab Results - Last 24 Hours (Table) 05/30/18 Range/Units 09:04 WBC 15.7 H (3.8-10.6) k/uL Neutrophils # 13.2 H (1.3-7.7) k/uL Assessment and Plan (1) Primary localized osteoarthritis of right hip Current Visit: Yes Status: Acute Code(s): M16.11 - UNILATERAL PRIMARY OSTEOARTHRITIS, RIGHT HIP SNOMED Code(s): 527198862 (2) Status post total replacement of right hip Current Visit: Yes Status: Acute Code(s): Z96.641 - PRESENCE OF RIGHT ARTIFICIAL HIP JOINT SNOMED Code(s): 437397094031 Plan: The clinical findings are discussed with the patient. She is to begin the physical therapy today. Will repeat CBC today. She is requesting transfer to inpatient rehab. We are planning transfer to rehab on this week.
[2018-05-31] MEDS: RANOLAZINE 500 MG TAB.ER.12H PO SCH ×2 (08:39→23:18)
[2018-05-31] MEDS: MELOXICAM 7.5 MG TAB PO SCH (08:40)
[2018-05-31] MEDS: METOPROLOL TARTRATE 50 MG TAB PO SCH ×2 (08:40→23:18)
[2018-05-31] MEDS: RIVAROXABAN 10 MG TAB PO SCH (08:40)
[2018-05-31] MEDS: HYDROcodone/APAP 5-325MG 1 EACH TAB PO PRN (08:40)
[2018-05-31] MEDS: FAMOTIDINE 20 MG TAB PO SCH (08:40)
[2018-05-31] MEDS: MULTIVITAMINS, THERA 1 EACH TAB PO SCH (08:40)
[2018-05-31 08:57] LABS: Basophils % (A) 0 %; Eosinophils # (A) 0.2 k/uL (0-0.7); Eosinophils % (A) 2 %; HGB 11.6 gm/dL (11.4-16.0); Lymphocytes # (A) 2.3 k/uL (1.0-4.8); Lymphocytes % (A) 29 %; MCH 30.1 pg (25.0-35.0); MCHC 33.2 g/dL (31.0-37.0); MCV 90.6 fL (80.0-100.0); Mean Platelet Volume 7.4; Monocytes # (A) 0.4 k/uL (0-1.0); Monocytes % (A) 6 %; Neutrophils % (A) 62 %; Platelet Count 171 k/uL (150-450); RBC 3.86 m/uL (3.80-5.40); RDW 15.1 % (11.5-15.5)
[2018-05-31] MEDS ORDERED: SODIUM CHLORIDE 0.9% 1,000 ML IV ONE (14:56)
[2018-05-31] MEDS: PRAVASTATIN SODIUM 80 MG TAB PO SCH (23:18)
[2018-05-31] MEDS: SENNOSIDES-DOCUSATE SODIUM 1 EACH TAB PO SCH (23:18)
[2018-06-01] MEDS: LACTATED RINGERS 1,000 ML IV SCH ×2 (04:54→14:02)
[2018-06-01 08:32] LABS: Basophils % (A) 1 %; Eosinophils # (A) 0.3 k/uL (0-0.7); Eosinophils % (A) 4 %; HCT 32.9 % (34.0-46.0); HGB 10.6 gm/dL (11.4-16.0); Lymphocytes # (A) 1.6 k/uL (1.0-4.8); Lymphocytes % (A) 25 %; MCHC 32.3 g/dL (31.0-37.0); MCV 89.7 fL (80.0-100.0); Mean Platelet Volume 7.1; Monocytes # (A) 0.5 k/uL (0-1.0); Monocytes % (A) 7 %; Neutrophils # (A) 4.1 k/uL (1.3-7.7); Neutrophils % (A) 62 %; Platelet Count 164 k/uL (150-450); RBC 3.67 m/uL (3.80-5.40); RDW 14.8 % (11.5-15.5); WBC 6.6 k/uL (3.8-10.6)
--- NOTE | 2018-06-01 08:37 | P.DS ---
Providers Date of admission: 05/29/18 13:41 Expected date of discharge: 06/01/18 Attending physician: Jamil Cage Consults: 05/29/18 18:10 Consult Physician Routine Consulting Provider: Brice Leon Consult Reason/Comments: Medical management Do you want consulting provider notified?: Yes Primary care physician: Livia Ortega - Discharge Diagnosis(es) (1) Primary localized osteoarthritis of right hip Current Visit: Yes Status: Acute (2) Status post total replacement of right hip Current Visit: Yes Status: Acute Hospital Course: This is a 67-year-old female with known history of degenerative arthritis of the right hip. The patient presents for evaluation. After discussion and consideration patient elects to proceed with total hip arthroplasty. The patient is seen preoperatively by her primary care physician and cleared for surgery. Patient is admitted to [facility] on 05/29/2018 for total hip arthroplasty. The procedures performed without complication or sequelae. The patient is doing well postoperatively. Labs and vital signs are stable on day of discharge. On day of discharge patient's hip incision is healing well. There is minimal erythema. There is no drainage noted at this time. There is minimal soft tissue swelling to the hip and thigh. Patient has full foot and ankle motion without difficulty or pain. Neurovascular status to the right lower extremity is intact. Patient is discharged to home in good condition. Plan - Discharge Summary Discharge Rx Participant: No New Discharge Prescriptions: New Aspirin [Adult Low Dose Aspirin EC] 81 mg PO DAILY #1 tablet. HYDROcodone/APAP 5-325MG [[place] 5-325] 1 - 2 each PO Q4-6H PRN #50 tab PRN Reason: Pain Rivaroxaban [Xarelto] 10 mg PO DAILY #5 tab Sennosides-Docusate Sodium [Senokot-S] 1 tab PO BID #60 tablet No Action Multivitamins, Thera [Multivitamin (formulary)] 1 tab PO DAILY Metoprolol Tartrate [Lopressor] 50 mg PO BID Isosorbide Mononitrate [Imdur] 120 mg PO QAM amLODIPine [Norvasc] 5 mg PO QAM Ranolazine [Ranexa] 1,000 mg PO BID Pravastatin Sodium [Pravachol] 80 mg PO HS Calcium Carb-Vit D 500Mg-200Un [[place] 500+D] 1 each PO DAILY Discharge Medication List Multivitamins, Thera [Multivitamin (formulary)] 1 tab PO DAILY 09/06/14 [History ] Isosorbide Mononitrate [Imdur] 120 mg PO QAM 09/07/14 [History] Metoprolol Tartrate [Lopressor] 50 mg PO BID 09/07/14 [History] amLODIPine [Norvasc] 5 mg PO QAM 09/07/14 [History] Pravastatin Sodium [Pravachol] 80 mg PO HS 02/08/18 [History] Ranolazine [Ranexa] 1,000 mg PO BID 02/08/18 [History] Calcium Carb-Vit D 500Mg-200Un [[place] 500+D] 1 each PO DAILY 05/17/18 [History] Aspirin [Adult Low Dose Aspirin EC] 81 mg PO DAILY #1 tablet. 05/29/18 [Rx] HYDROcodone/APAP 5-325MG [[place] 5-325] 1 - 2 each PO Q4-6H PRN #50 tab 05/29/18 [Rx] Rivaroxaban [Xarelto] 10 mg PO DAILY #5 tab 05/29/18 [Rx] Sennosides-Docusate Sodium [Senokot-S] 1 tab PO BID #60 tablet 05/29/18 [Rx] Follow up Appointment(s)/Referral(s): Gia Henry PAC [PHYSICIAN DATA MANAGEMENT ANALYST] - 06/05/18 9:50 am Activity/Diet/Wound Care/Special Instructions: [facility] for rehab May shower if no drainage from incision. TTWB w walker. Maintain posterior hip precautions. Discharge Disposition: TRANSFER TO SNF/ECF
[2018-06-01] MEDS: METOPROLOL TARTRATE 50 MG TAB PO SCH (09:12)
[2018-06-01] MEDS: MULTIVITAMINS, THERA 1 EACH TAB PO SCH (09:13)
[2018-06-01] MEDS: MELOXICAM 7.5 MG TAB PO SCH (09:13)
[2018-06-01] MEDS: RANOLAZINE 500 MG TAB.ER.12H PO SCH (09:13)
[2018-06-01] MEDS: RIVAROXABAN 10 MG TAB PO SCH (09:13)
[2018-06-01] MEDS: FAMOTIDINE 20 MG TAB PO SCH (09:13)
[2018-06-01] MEDS: HYDROcodone/APAP 5-325MG 1 EACH TAB PO PRN (09:16)
--- NOTE | 2018-06-01 13:21 | P.PN ---
Subjective 70-year-old admitted for right hip arthroplasty patient was hypotensive yesterday has to receive IV fluids because of significant. Perioperative hypotension although expected all this can you her antidepressant medications which is amlodipine and metoprolol will be continued and they can be started as an outpatient if needed. I'm assuming she'll not need that medication anymore patient is medically stable to be discharged and did review the discharge medication reconciliation. Constitutional: Denied any fatigue denied any fever. Cardio vascular: denied any chest pain, palpitations Gastrointestinal denied any nausea vomiting Pulmonary: Denied any shortness of breath cough Neurologic denied any new focal deficits All inpatient medications were reviewed and appropriate changes in these medications as dictated in the interval history and assessment and plan. Objective - Vital Signs Vital signs: Vital Signs Temp 98.8 F 06/01/18 08:07 Pulse 84 06/01/18 08:07 Resp 16 06/01/18 08:07 BP 106/66 06/01/18 08:07 Pulse Ox 95 06/01/18 08:07 Intake & Output 05/31/18 06/01/18 06/01/18 18:59 06:59 18:59 Intake Total 500 450 Balance 500 450 Intake: IV 200 Lactated Ringers 1,000 ml 200 @ 100 mls/hr IV .Q10H JAVY Rx#:[id number] Oral 500 250 Other: Voiding Method Toilet Toilet # Voids 3 2 - Exam PHYSICAL EXAMINATION: GENERAL: The patient is alert and oriented x3, not in any acute distress. Well developed, well nourished. HEENT: Pupils are round and equally reacting to light. EOMI. No scleral icterus. No conjunctival pallor. Normocephalic, atraumatic. No pharyngeal erythema. No thyromegaly. CARDIOVASCULAR: S1 and S2 present. No murmurs, rubs, or gallops. PULMONARY: Chest is clear to auscultation, no wheezing or crackles. ABDOMEN: Soft, nontender, nondistended, normoactive bowel sounds. No palpable organomegaly. MUSCULOSKELETAL: Deferred to orthopedic surgery EXTREMITIES: No cyanosis, clubbing, or pedal edema. NEUROLOGICAL: Gross neurological examination did not reveal any focal deficits. SKIN: No rashes. - Labs CBC & Chem 7: 06/01/18 07:42 Labs: Abnormal Lab Results - Last 24 Hours (Table) 06/01/18 Range/Units 07:42 RBC 3.67 L (3.80-5.40) m/uL Hgb 10.6 L (11.4-16.0) gm/dL Hct 32.9 L (34.0-46.0) % Assessment and Plan Plan: -Leukocytosis no signs or symptoms of sepsis reactive secondary to surgery no further intervention is necessary -Status post right hip arthroplasty pain management DVT prophylaxis as per primary service -Hypertension further management as mentioned above -Hyperlipidemia -Coronary artery disease -Gastroesophageal reflux disease
[2018-06-01 15:30] VITALS: BP 110/67; PULSE 86; TEMP 98.6
== END 2018-06-01 16:35 | DRG 470 ==
LOC: 2ORMAIN 13:41 → 4SSUR 19:45
PROVIDERS: ADMIT Orthopaedic Surgery; ATTEND Orthopaedic Surgery
PROC: 0SR904A Replacement of Right Hip Joint with Ceramic on Polyethylene Synthetic Substitute, Uncemented, Open Approach (ICD-10-PCS; principal; 2018-05-29 15:15)
DX: M16.11 Unilateral primary osteoarthritis, right hip (principal); D72.829 Elevated white blood cell count, unspecified; E78.5 Hyperlipidemia, unspecified; I10 Essential (primary) hypertension; I25.2 Old myocardial infarction; I95.9 Hypotension, unspecified; K21.9 Gastro-esophageal reflux disease without esophagitis; Z79.01 Long term (current) use of anticoagulants; Z79.82 Long term (current) use of aspirin; Z79.899 Other long term (current) drug therapy; Z83.3 Family history of diabetes mellitus; Z87.891 Personal history of nicotine dependence; Z90.710 Acquired absence of both cervix and uterus; Z96.642 Presence of left artificial hip joint; Z86.718 Personal history of other venous thrombosis and embolism
CPT/HCPCS: 73501; 85025; 86850; 86900; 86901; 88300

== ENCOUNTER → 2020-12-16 | Outpatient (CLI) | payer MEDICARE, OTHER ==
--- NOTE | 2020-12-17 05:42 | MR ---
EXAMINATION TYPE: MR iac wo/w con DATE OF EXAM: 12/16/2020 COMPARISON: HISTORY: Left ear feels plugged and hearing loss. CONTRAST: Standard multiplanar, multisequence MRI departmental protocol utilizing 9 mL intravenous Gadavist idalia olinium contrast. Ventricles have normal size. There is no mass effect nor midline shift. There is no evidence of intra cranial hemorrhage. There is mild cerebral atrophy appropriate for age. The diffusion images show no evidence of an acute infarct. The corpus callosum is intact. Brainstem shows 5 mm area of increased signal in the right side of the ricco. On the T2 and FLAIR images there are multiple scattered foci of increased signal at the peck-w france matter junction of both cerebral hemispheres. Total number is approximately 50 and most of these measure less than 5 mm. The internal auditory canals appear normal. There is normal appearance of the acoustic nerve and vest ibular nerve. There is normal signal pattern of the temporal bones. There is no sign of mastoiditis. The contrast images show no pathologic enhancement. There is normal enhancement of the venous sinuses . The cochlea and semicircular canals appear symmetric. I do not see increased fluid involving the le ft ear. IMPRESSION: Mild cerebral atrophy. Numerous small white matter high signal foci at the peck-white matter junction consistent with chronic small vessel ischemia. Demyelinating disease not excluded. Small lesion also in the right side of the ricco. No demonstrated abnormality of the auditory canals.
== END | disposition home or self-care (01) ==
LOC: RADMRIMAIN 09:10
PROVIDERS: ATTEND Otolaryngology
DX: G31.9 Degenerative disease of nervous system, unspecified (principal)
CPT/HCPCS: 70553; A9585

== ENCOUNTER → 2023-11-10 | Outpatient (CLI) | payer MEDICARE, OTHER ==
--- NOTE | 2023-11-14 08:06 | MM ---
Reason for Exam: Screening (asymptomatic). Last mammogram was performed 16 year(s) and 2 month(s) ago. Patient History: Menarche at age 10. Patient has no children. Left ovary removed at age 35. Right ovary removed at age 35. Hysterectomy at age 35. Postmenopausal. Estrogen for 18 years from age 35 until age 53. 1999, Benign Core Biopsy on the left side. 05/04/2001, Benign Stereotactic Core Biopsy on the left side. Risk Values: Ashley 5 year model risk: 3.2%. NCI Lifetime model risk: 7.8%. Prior Study Comparison: 05/04/2005 Bilateral Screening Mammogram, [place]. 08/18/2006 Bilateral Screening Mammogram, [place]. 08/29/2007 Bilateral Screening Mammogram, [place]. Tissue Density: The breasts are heterogeneously dense, which may obscure small masses. Findings: Analyzed By CAD. There is no suspicious group of microcalcifications or new suspicious mass in either breast. Overall Assessment: Benign, BI-RAD 2 Management: Screening Mammogram of both breasts in 1 year. . Patient should continue monthly self-breast exams. A clinical breast exam by your physician is recommended on an annual basis. This exam should not preclude additional follow-up of suspicious palpable abnormalities. Note on Ashley scores and lifetime risk: 1. A Ashley score greater than 3% is considered moderate risk. If this is the case, consider specialist referral to assess eligibility for a risk reducing agent. 2. If overall lifetime risk for the development of breast cancer is 20% or higher, the patient may qualify for future screening with alternating mammogram and breast MRI. Electronically signed and approved by: Thom Dennis M.D. Radiologis
== END | disposition home or self-care (01) ==
LOC: RADMAMWWP 13:09
PROVIDERS: ATTEND Family Medicine
DX: Z12.31 Encounter for screening mammogram for malignant neoplasm of breast (principal); Z78.0 Asymptomatic menopausal state
CPT/HCPCS: 77063; 77067

== ENCOUNTER 2024-05-26 06:50 | Inpatient (IN) | payer MEDICARE, OTHER ==
--- NOTE | 2024-05-26 07:09 | ED ---
Chest Pain HPI - General Chief Complaint: Chest Pain Stated Complaint: chest pain Time Seen by Provider: 05/26/24 07:03 Source: patient, RN notes reviewed Mode of arrival: wheelchair Limitations: no limitations - History of Present Illness Initial Comments: 73-year-old female presents emergency department with chief complaint of chest pain. States it woke her up this morning. States she has centralized sharp chest pain and pressure. Patient states that she is on medications for prior cardiac disease states that she did have a history of past of hypertension and hyperlipidemia but states that she is not taking currently. She states she is on Imdur and Ranexa. patient denies fever chills no cough or COVID symptoms. Patient has a leg pain leg swelling usual. - Related Data Home Medications Medication Instructions Recorded Confirmed Multivitamins, Thera [Multivitamin 1 tab PO DAILY 09/06/14 05/29/18 (formulary)] Isosorbide Mononitrate [Imdur] 120 mg PO QAM 09/07/14 05/29/18 Ranolazine [Ranexa] 1,000 mg PO BID 02/08/18 05/29/18 Atorvastatin [Lipitor] 40 mg PO DIRECTED 05/26/24 05/26/24 Calcium Carbonate 500 mg PO DAILY 05/26/24 05/26/24 Metoprolol Tartrate [Lopressor] 25 mg PO DIRECTED 05/26/24 05/26/24 Nitroglycerin Sl Tabs [Nitrostat] 0.4 mg SL Q5M PRN 05/26/24 05/26/24 amLODIPine [Norvasc] 5 mg PO DIRECTED 05/26/24 05/26/24 Previous Rx's Medication Instructions Recorded Aspirin [Adult Low Dose Aspirin EC] 81 mg PO DAILY #1 tablet. 05/29/18 Allergies Allergy/AdvReac Type Severity Reaction Status Date / Time No Known Allergies Allergy Verified 05/26/24 08:29 Review of Systems ROS Statement: Those systems with pertinent positive or pertinent negative responses have been documented in the HPI. ROS Other: All systems not noted in ROS Statement are negative. EKG Findings - EKG Comments: EKG Findings:: EKG performed at 7: 27 sinus rhythm rate of 82 CO 152 QRS 88 QT/QTc 502/554. Repeat EKG performed at ED: 23 sinus rhythm rate of 79 CO 149 QRS 87 QT/QTc 476/511 inverted T waves diffusely noted consistent with prior EKG in 2018 - EKG Results: EKG: interpreted by ANDERSON Past Medical History Past Medical History: GERD/Reflux, Hyperlipidemia, Hypertension, Myocardial Infarction ([place]), Osteoarthritis (OA) Additional Past Medical History / Comment(s): " blood clot one of the arteries in my heart,Dr told me my bottom of my heart was working slower than the top part of my heart, no problems since that time" Last Myocardial Infarction Date:: FEB 2004 History of Any Multi-Drug Resistant Organisms: None Reported Past Surgical History: Breast Surgery, Hysterectomy, Orthopedic Surgery, Tonsillectomy Additional Past Surgical History / Comment(s): cataract surgery. Tonsillectomy, BREAST BIOPSY- RIGHT 2010, total bilatera; hip, bunion removed ion 2001 left foot Past Anesthesia/Blood Transfusion Reactions: No Reported Reaction Additional Past Anesthesia/Blood Transfusion Reaction / Comment(s): 1985 blood transfusion-no problems Past Psychological History: Anxiety Smoking Status: Never smoker Past Alcohol Use History: None Reported Past Drug Use History: None Reported - Past Family History Mother Family Medical History: Diabetes Mellitus, Deep Vein Thrombosis (DVT) Additional Family Medical History / Comment(s): type 1 DM Father Family Medical History: No Reported History General Exam Limitations: no limitations General appearance: alert, in no apparent distress Head exam: Present: atraumatic, normocephalic, normal inspection Eye exam: Present: normal appearance, PERRL, EOMI. Absent: scleral icterus, conjunctival injection, periorbital swelling ENT exam: Present: normal exam, mucous membranes moist Neck exam: Present: normal inspection, full ROM. Absent: tenderness, meningismus, lymphadenopathy Respiratory exam: Present: normal lung sounds bilaterally. Absent: respiratory distress, wheezes, rales, rhonchi, stridor Cardiovascular Exam: Present: regular rate, normal rhythm, normal heart sounds. Absent: systolic murmur, diastolic murmur, rubs, gallop, clicks Course Vital Signs 05/26/24 05/26/24 05/26/24 06:56 07:35 08:00 Temperature 97.8 F Pulse Rate 90 75 69 Respiratory 16 18 16 Rate Blood Pressure 127/86 123/91 103/76 O2 Sat by Pulse 97 96 91 L Oximetry Chest Pain MDM - MDM Was pt. sent in by a medical professional or institution (, SAMPSON, KILN TRANSFER OPERATOR, urgent care, hospital, or long term...) When possible be specific @ -No Did you speak to anyone other than the patient for history (EMS, parent, family, police, friend...)? What history was obtained from this source @ -No Did you review nursing and triage notes (agree or disagree)? Why? @ -I reviewed and agree with nursing and triage notes Were old charts reviewed (outside hosp., previous admission, EMS record, old EKG, old radiological studies, urgent care reports/EKG's, long term records)? Report findings @ -Reviewed EKG from 2018 Differential Diagnosis (chest pain, altered mental status, abdominal pain women, abdominal pain men, vaginal bleeding, weakness, fever, dyspnea, syncope, headache, dizziness, GI bleed, back pain, seizure, CVA, palpatations, mental health, musculoskeletal)? @ -Differential Chest Pain: Stable Angina, Unstable Angina, STEMI, NSTEMI Aortic Dissection, Pneumothorax, Musculoskeletal, Esophageal Spasm GERD, Cholecystitis, Pancreatitis, Zoster, this is not meant to be an all-inclusive list. EKG interpreted by me (3pts min.). @ -As above X-rays interpreted by me (1pt min.). @ -[Chest x-ray shows mild atelectasis, no overt signs of heart failure CT interpreted by me (1pt min.). @ -None done U/S interpreted by me (1pt. min.). @ -None done What testing was considered but not performed or refused? (CT, X-rays, U/S, l abs)? Why? @ -None What meds were considered but not given or refused? Why? @ -None Did you discuss the management of the patient with other professionals (professionals i.e. SAMPSON Padilla, KILN TRANSFER OPERATOR, lab, RT, psych nurse, manager social services, unit aide tech, teacher, patrol officer, briefcase sewer)? Give summary @ -I discussed the case with Dr. Becker on-call court clerk regarding patient's EKG, symptoms and elevated troponin. [facility] for admission Was smoking cessation discussed for >3mins.? @ -No Was critical care preformed (if so, how long)? @ -35 minutes Were there social determinants of health that impacted care today? How? (Homelessness, low income, unemployed, alcoholism, drug addiction, transportation, low edu. Level, literacy, decrease access to med. care, senior living, rehab)? @ -No Was there de-escalation of care discussed even if they declined (Discuss DNR or withdrawal of care, Hospice)? DNR status @ -No What co-morbidities impacted this encounter? (DM, HTN, Smoking, COPD, CAD, Cancer, CVA, ARF, Chemo, Hep., AIDS, mental health diagnosis, sleep apnea, morbid obesity)? @ -CAD Was patient admitted / discharged? Hospital course, mention meds given and route, prescriptions, significant lab abnormalities, going to OR and other pertinent info. @ -Admitted patient presented for chest pain started around 30 this morning. Patient's initial troponin is elevated over 5. Patient is symptom-free currently after nitro patient was given aspirin. Patient was started on Nitropaste, heparin, echocardiogram was ordered I discussed case with cardiology, admitting physician Undiagnosed new problem with uncertain prognosis? @ -No Drug Therapy requiring intensive monitoring for toxicity (Heparin, Nitro, Insulin, Cardizem)? @ -Heparin Were any procedures done? @ -No Diagnosis/symptom? @ -NSTEMI Acute, or Chronic, or Acute on Chronic? @ -Acute Uncomplicated (without systemic symptoms) or Complicated (systemic symptoms)? @ -Complicated Side effects of treatment? @ -No Exacerbation, Progression, or Severe Exacerbation? @ -No Poses a threat to life or bodily function? How? (Chest pain, [place], [place], pneumonia, PE, COPD, DKA, ARF, appy, cholecystitis, CVA, Diverticulitis, Homicidal, Suicidal, threat to staff... and all critical care pts) @ -Yes NSTEMI causing risk to cardiac function Critical Care Time Critical Care Time: Yes Total Critical Care Time: 35 Disposition Clinical Impression: Acute non-ST elevation myocardial infarction (NSTEMI) Disposition: ADMITTED IP TO THIS HOSP Condition: Serious Referrals: Livia Ortega DO [Primary Care Provider] - 1-2 days Time of Disposition: 08:35
--- NOTE | 2024-05-26 07:22 | XR ---
EXAMINATION TYPE: XR chest 2V DATE OF EXAM: 05/26/2024 7:13 AM COMPARISON: Chest x-ray 2014 CLINICAL INDICATION: Female, 73 years old with history of Chest Pain, TECHNIQUE: Frontal and lateral views of the chest are obtained. FINDINGS: There is lateral left mid lung linear scarring and/or atelectasis. Right lung is clear. T he cardiac silhouette size is stable and within normal limits. The osseous structures are intact. IMPRESSION: No suspicious new acute pulmonary process. [facility], , 05/26/2024 7:19 AM
[2024-05-26] MEDS: NITROGLYCERIN SL TABS 0.4 MG TAB SUBLINGUAL STA (07:38)
[2024-05-26] MEDS: ASPIRIN 81 MG PO STA (07:38)
[2024-05-26 07:48] LABS: Basophils # (A) 0.1 k/uL (0-0.2); Basophils % (A) 1 %; Eosinophils # (A) 0.1 k/uL (0-0.7); Eosinophils % (A) 1 %; HCT 45.9 % (34.0-46.0); HGB 14.7 gm/dL (11.4-16.0); Lymphocytes # (A) 1.8 k/uL (1.0-4.8); Lymphocytes % (A) 17 %; MCHC 32.1 g/dL (31.0-37.0); MCV 90.5 fL (80.0-100.0); Mean Platelet Volume 7.3; Monocytes # (A) 0.6 k/uL (0-1.0); Monocytes % (A) 6 %; Neutrophils # (A) 8.1 k/uL (1.3-7.7); Neutrophils % (A) 75 %; Platelet Count 213 k/uL (150-450); RBC 5.07 m/uL (3.80-5.40); RDW 13.3 % (11.5-15.5); WBC 10.8 k/uL (3.8-10.6)
[2024-05-26 08:01] LABS: ALT 25 U/L (4-34); AST 58 U/L (14-36); African American GFR (CKD) 80 (>60 ml/min/1.73 sqM); Albumin 4.6 g/dL (3.5-5.0); Alkaline Phosphatase 81 U/L (38-126); Anion Gap 13 mmol/L; Blood Urea Nitrogen 16 mg/dL (7-17); Calcium 9.7 mg/dL (8.4-10.2); Carbon Dioxide 19 mmol/L (22-30); Chloride 106 mmol/L (98-107); Glucose 135 mg/dL (74-99); Magnesium 1.9 mg/dL (1.6-2.3); Non-African American GFR(CKD) 69 (>60 ml/min/1.73 sqM); Potassium 4.4 mmol/L (3.5-5.1); Sodium 138 mmol/L (137-145); Total Bilirubin 1.2 mg/dL (0.2-1.3); Total Protein 6.9 g/dL (6.3-8.2)
[2024-05-26 08:09] LABS: NT-Pro-B-Type Natriuretic Pept 11300 pg/mL
[2024-05-26 08:13] LABS: Partial Thromboplastin Time 21.1 sec (22.0-30.0)
[2024-05-26] MEDS ORDERED: HEPARIN SODIUM 1,000 UN/ML (10ML VL) IV PRN (08:32)
[2024-05-26] MEDS: ATORVASTATIN 80 MG TAB PO STA ×2 (08:50→09:38)
[2024-05-26] MEDS: HEPARIN SODIUM 1,000 UN/ML (10ML VL) IV ONE (08:52)
[2024-05-26] MEDS: HEPARIN SOD,PORK IN 0.45% NACL 25,000 UNIT in 0.45% NACL 1 250ML.BAG IV SCH (08:52)
[2024-05-26] MEDS ORDERED: ALPRAZolam 0.25 MG TAB PO PRN (09:34)
[2024-05-26] MEDS ORDERED: NITROGLYCERIN SL TABS 0.4 MG TAB SUBLINGUAL PRN ×2 (09:34→13:22)
[2024-05-26] MEDS ORDERED: ALPRAZolam 0.5 MG TAB PO PRN (09:34)
[2024-05-26] MEDS: ASPIRIN 325 MG TAB PO STA (09:38)
[2024-05-26] MEDS: METOPROLOL TARTRATE 25 MG TAB PO SCH ×2 (09:42→20:30)
[2024-05-26 10:07] LABS: Glucose,Whole Blood 112 mg/dL (70-110)
--- NOTE | 2024-05-26 10:18 | P.HPIM ---
History of Present Illness 73-year-old pleasant female came in with pressure-like chest pain on the left side of the chest started yesterday. Patient is found to have elevated troponin of about 5 and patient has T wave inversions in lead I and lead II patient chest pain is significant in nature. Patient denied any shortness of breath patient also has elevated BNP of around 10,000 chest x-ray is essentially within normal limits patient does not have any history of congestive heart failure patient does have history of coronary artery disease. REVIEW OF SYSTEMS: All other systems are negative except those mentioned in the HPI PHYSICAL EXAMINATION: GENERAL: The patient is alert and oriented x3, not in any acute distress. Well developed, well nourished. HEENT: Pupils are round and equally reacting to light. EOMI. No scleral icterus. No conjunctival pallor. Normocephalic, atraumatic. No pharyngeal erythema. No thyromegaly. CARDIOVASCULAR: S1 and S2 present. No murmurs, rubs, or gallops. PULMONARY: Chest is clear to auscultation, no wheezing or crackles. ABDOMEN: Soft, nontender, nondistended, normoactive bowel sounds. No palpable organomegaly. MUSCULOSKELETAL: No joint swelling or deformity. EXTREMITIES: No cyanosis, clubbing, or pedal edema. NEUROLOGICAL: Gross neurological examination did not reveal any focal deficits. SKIN: No rashes. Assessment and plan -Acute non-ST elevation myocardial infarction possibly type I: Patient is on IV heparin, statin, beta-jose cardiology will evaluate the patient patient will eventually will need cardiac catheterization. Remote troponins -Coronary artery disease history -Gastroesophageal reflux disease -Hyperlipidemia For above-mentioned chronic medical problems patient will be resumed on appropriate home medications DVT prophylaxis: On IV heparin Past Medical History Past Medical History: GERD/Reflux, Hyperlipidemia, Hypertension, Myocardial Infarction ([place]), Osteoarthritis (OA) Additional Past Medical History / Comment(s): " blood clot one of the arteries in my heart,Dr told me my bottom of my heart was working slower than the top part of my heart, no problems since that time" Last Myocardial Infarction Date:: FEB 2004 History of Any Multi-Drug Resistant Organisms: None Reported Past Surgical History: Breast Surgery, Hysterectomy, Orthopedic Surgery, Tonsillectomy Additional Past Surgical History / Comment(s): cataract surgery. Tonsillectomy, BREAST BIOPSY- RIGHT 2011, total bilatera; hip, bunion removed ion 2001 left foot Past Anesthesia/Blood Transfusion Reactions: No Reported Reaction Additional Past Anesthesia/Blood Transfusion Reaction / Comment(s): 1985 blood transfusion-no problems Past Psychological History: Anxiety Smoking Status: Never smoker Past Alcohol Use History: None Reported Past Drug Use History: None Reported - Past Family History Mother Family Medical History: Diabetes Mellitus, Deep Vein Thrombosis (DVT) Additional Family Medical History / Comment(s): type 1 DM Father Family Medical History: No Reported History Medications and Allergies Home Medications Medication Instructions Recorded Confirmed Type Multivitamins, Thera [Multivitamin 1 tab PO DAILY 09/06/14 05/26/24 History (formulary)] Isosorbide Mononitrate [Imdur] 120 mg PO DIRECTED 09/07/14 05/26/24 History Ranolazine [Ranexa] 1,000 mg PO DIRECTED 02/08/18 05/26/24 History Aspirin [Adult Low Dose Aspirin EC] 81 mg PO DAILY #1 tablet. 05/29/18 05/26/24 Rx Atorvastatin [Lipitor] 40 mg PO DIRECTED 05/26/24 05/26/24 History Calcium Carbonate 500 mg PO DAILY 05/26/24 05/26/24 History Metoprolol Tartrate [Lopressor] 25 mg PO DIRECTED 05/26/24 05/26/24 History Nitroglycerin Sl Tabs [Nitrostat] 0.4 mg SL Q5M PRN 05/26/24 05/26/24 History amLODIPine [Norvasc] 5 mg PO DIRECTED 05/26/24 05/26/24 History Allergies Allergy/AdvReac Type Severity Reaction Status Date / Time No Known Allergies Allergy Verified 05/26/24 08:29 Physical Exam Vitals: Vital Signs Temp Pulse Resp BP Pulse Ox 05/26/24 09:43 75 18 113/81 95 05/26/24 08:00 69 16 103/76 91 L 05/26/24 07:35 75 18 123/91 96 05/26/24 06:56 97.8 F 90 16 127/86 97 Intake and Output 05/25/24 05/26/24 05/26/24 22:59 06:59 14:59 Other: Weight 85.275 kg Results CBC & Chem 7: 05/26/24 07:37 05/26/24 07:37 Labs: Abnormal Lab Results - Last 24 Hours (Table) 05/26/24 05/26/24 05/26/24 Range/Units 07:37 07:37 07:37 WBC 10.8 H (3.8-10.6) k/uL Neutrophils # 8.1 H (1.3-7.7) k/uL APTT 21.1 L (22.0-30.0) sec Carbon Dioxide 19 L (22-30) mmol/L Glucose 135 H (74-99) mg/dL POC Glucose (mg/dL) (70-110) mg/dL AST 58 H (14-36) U/L Troponin I (0.000-0.034) ng/mL 05/26/24 05/26/24 Range/Units 07:37 10:05 WBC (3.8-10.6) k/uL Neutrophils # (1.3-7.7) k/uL APTT (22.0-30.0) sec Carbon Dioxide (22-30) mmol/L Glucose (74-99) mg/dL POC Glucose (mg/dL) 112 H (70-110) mg/dL AST (14-36) U/L Troponin I 5.890 H* (0.000-0.034) ng/mL
[2024-05-26] MEDS: RANOLAZINE 500 MG TAB.ER.12H PO SCH (10:50)
[2024-05-26] MEDS: SODIUM CHLORIDE 0.9% 1,000 ML in EMPTY BAG 1 BAG IV SCH ×2 (10:53→14:22)
[2024-05-26] MEDS: NITROGLYCERIN OINT 1 INCH/GM PACKET TOPICAL SCH (11:09)
[2024-05-26] MEDS: MIDAZOLAM 2 MG/2 ML VIAL IVP ONE (12:16)
[2024-05-26] MEDS: fentaNYL (PF) 50 MCG/ML 2 ML AMP IVP ONE (12:16)
[2024-05-26] MEDS: LIDOCAINE 1% INJ 10MG/ML (20 ML MDV) SQ ONE (12:19)
[2024-05-26] MEDS: IV FLUID CONTINUATION 950 ML IV ONE (12:20)
[2024-05-26] MEDS: VERAPAMIL SYRINGE (5 MG/10 ML) INTRAARTER ONE (12:22)
[2024-05-26] MEDS: HEPARIN SODIUM 1,000 UN/ML (10ML VL) IVP ONE ×2 (12:26→12:30)
[2024-05-26] MEDS: TICAGRELOR 90 MG TAB PO ONE (12:37)
[2024-05-26] MEDS: HEPARIN SODIUM,PORCINE (1 ML) 2,500 UNIT in SODIUM CHLORIDE 0.9% 250 ML IRRIGATION ONE (13:05)
[2024-05-26] MEDS: HEPARIN SODIUM,PORCINE 10,000 UNIT in SODIUM CHLORIDE 0.9% 1,000 ML IRRIGATION ONE (13:05)
[2024-05-26] MEDS: NITROGLYCERIN 1000MCG/10ML SYRINGE INTRAARTER ONE (13:09)
[2024-05-26] MEDS: IOPAMIDOL-370 100ML BTL INJ ONE (13:10)
--- NOTE | 2024-05-26 13:11 | P.CRDCN ---
History of Present Illness History of present illness: HISTORY OF PRESENT ILLNESS: This is a 73-year-old female with a past medical history significant for hypertension, hyperlipidemia, and former nicotine dependence. Patient follows with a ad setter in [place], Dr. Mukesh Thayer. We have been asked to see the patient in consultation for elevated troponins. Patient examined at the bedside in the emergency room. Patient states that she woke up around 1:00 in the morning with pain in the middle of her chest. She denied having any radiation of the pain. She states this is the first time she has had an episode of chest pain like this. She states yesterday she was not feeling well and has been tired lately but denied having any chest pain or shortness of breath yesterday. Patient presented to the hospital for further evaluation. She was found to have elevated troponins and was started on IV heparin. Patient states that she is a former cigarette smoker but quit smoking in her 20s. Patient also reports a vague history of a clot in her heart about 20 years ago. She states that she was also told many years ago that the bottom part of her heart was not working as well as the top part. However she denies having a history of CAD or previous stenting. Patient is prescribed Ranexa and Imdur on an outpatient basis. Ave nt is unable to state the reason why she is prescribed these medications. DIAGNOSTICS: - EKG reveals sinus mechanism with T wave inversions in anterior lateral leads - Chest xray no suspicious no acute pulmonary process - Laboratory data: WBC 10.8. Hemoglobin 14.7. Platelet count 213. Sodium 138. Potassium 4.4. BUN 16. Creatinine 0.84. Troponin 5.890. 6.860. proBNP 11,300 - Current home cardiac medications include aspirin 81 mg daily, atorvastatin 40 mg daily, Imdur 120 mg daily, metoprolol tartrate 25 mg daily, Ranexa 1000 mg twice a day, amlodipine 5 mg daily - No previous echocardiogram, stress test, or cardiac catheterization available in EMR for review REVIEW OF SYSTEMS: At the time of my exam: CONSTITUTIONAL: Denies fever or chills. HEENT: Denies blurred vision, vision changes, or eye pain. Denies hemoptysis CARDIOVASCULAR: Denies chest pain. Denies orthopnea. Denies PND. Denies palpitations RESPIRATORY: Denies shortness of breath. GASTROINTESTINAL: Denies abdominal pain. Denies nausea or vomiting. HEMATOLOGIC: Denies bleeding disorders. GENITOURINARY: Denies any blood in urine. SKIN: Denies pruitis. Denies rash. PHYSICAL EXAM: VITAL SIGNS: Reviewed. GENERAL: Well-developed in no acute distress. HEENT: Head is normocephalic. Pupils are equal, round. Sclerae anicteric. Mucous membranes of the mouth are moist. Neck supple. No JVD or thyromegaly LUNGS: Respirations even and unlabored. Lungs essentially clear to auscultation bilaterally. HEART: Regular rate and rhythm. S1 and S2 heard. Systolic murmur noted ABDOMEN: Soft. Nondistended. Nontender. EXTREMITIES: Normal range of motion. No clubbing or cyanosis. Peripheral pulses intact. No lower extremity edema NEUROLOGIC: Awake and alert. Oriented x 3. ASSESSMENT: Non-STEMI History of hypertension History of hyperlipidemia Former nicotine dependence, patient quit smoking in her 20s Obesity: BMI 34.4 PLAN: Obtain 2D echo to assess cardiac structure and function Continue IV heparin Add aspirin 81 mg daily, atorvastatin 80 mg at night, and metoprolol tartrate 25 mg twice a day Continue Nitropaste Hold off on resuming home dose of Ranexa or Imdur Patient to undergo cardiac catheterization today with Dr. Man Further recommendations pending patient course Nurse practitioner note has been reviewed by physician. Signing provider agrees with the documented findings, assessment, and plan of care documented by MACHINE SETUP OPERATOR as a scribe. Past Medical History Past Medical History: GERD/Reflux, Hyperlipidemia, Hypertension, Myocardial Infarction ([place]), Osteoarthritis (OA) Additional Past Medical History / Comment(s): " blood clot one of the arteries in my heart, told me my bottom of my heart was working slower than the top part of my heart, no problems since that time" Last Myocardial Infarction Date:: FEB 2004 History of Any Multi-Drug Resistant Organisms: None Reported Past Surgical History: Breast Surgery, Hysterectomy, Orthopedic Surgery, Tonsillectomy Additional Past Surgical History / Comment(s): cataract surgery. Tonsillectomy, BREAST BIOPSY- RIGHT 2010, total bilatera; hip, bunion removed ion 2001 left f oot Past Anesthesia/Blood Transfusion Reactions: No Reported Reaction Additional Past Anesthesia/Blood Transfusion Reaction / Comment(s): 1985 blood t ransfusion-no problems Past Psychological History: Anxiety Smoking Status: Never smoker Past Alcohol Use History: None Reported Past Drug Use History: None Reported - Past Family History Mother Family Medical History: Diabetes Mellitus, Deep Vein Thrombosis (DVT) Additional Family Medical History / Comment(s): type 1 DM Father Family Medical History: No Reported History Medications and Allergies Home Medications Medication Instructions Recorded Confirmed Type Multivitamins, Thera [Multivitamin 1 tab PO DAILY 09/06/14 05/26/24 History (formulary)] Isosorbide Mononitrate [Imdur] 120 mg PO DIRECTED 09/07/14 05/26/24 History Ranolazine [Ranexa] 1,000 mg PO DIRECTED 02/08/18 05/26/24 History Aspirin [Adult Low Dose Aspirin EC] 81 mg PO DAILY #1 tablet. 05/29/18 05/26/24 Rx Atorvastatin [Lipitor] 40 mg PO DIRECTED 05/26/24 05/26/24 History Calcium Carbonate 500 mg PO DAILY 05/26/24 05/26/24 History Metoprolol Tartrate [Lopressor] 25 mg PO DIRECTED 05/26/24 05/26/24 History Nitroglycerin Sl Tabs [Nitrostat] 0.4 mg SL Q5M PRN 05/26/24 05/26/24 History amLODIPine [Norvasc] 5 mg PO DIRECTED 05/26/24 05/26/24 History Allergies Allergy/AdvReac Type Severity Reaction Status Date / Time No Known Allergies Allergy Verified 05/26/24 08:29 Physical Exam Vitals: Vital Signs Temp Pulse Resp BP Pulse Ox 05/26/24 11:32 60 16 135/74 94 L 05/26/24 11:09 65 18 128/74 95 05/26/24 09:43 75 18 113/81 95 05/26/24 08:00 69 16 103/76 91 L 05/26/24 07:35 75 18 123/91 96 05/26/24 06:56 97.8 F 90 16 127/86 97 Intake and Output 05/25/24 05/26/24 05/26/24 22:59 06:59 14:59 Other: Weight 85.275 kg Results 05/26/24 07:37 05/26/24 07:37 Cardiac Enzymes 05/26/24 05/26/24 05/26/24 Range/Units 07:37 07:37 10:00 AST 58 H (14-36) U/L Troponin I 5.890 H* 6.860 H* (0.000-0.034) ng/mL Coagulation 05/26/24 05/26/24 Range/Units 07:37 10:00 PT 11.0 (10.0-12.5) sec APTT 21.1 L 49.0 H (22.0-30.0) sec CBC 05/26/24 Range/Units 07:37 WBC 10.8 H (3.8-10.6) k/uL RBC 5.07 (3.80-5.40) m/uL Hgb 14.7 (11.4-16.0) gm/dL Hct 45.9 (34.0-46.0) % Plt Count 213 (150-450) k/uL Comprehensive Metabolic Panel 05/26/24 Range/Units 07:37 Sodium 138 (137-145) mmol/L Potassium 4.4 (3.5-5.1) mmol/L Chloride 106 (98-107) mmol/L Carbon Dioxide 19 L (22-30) mmol/L BUN 16 (7-17) mg/dL Creatinine 0.84 (0.52-1.04) mg/dL Glucose 135 H (74-99) mg/dL Calcium 9.7 (8.4-10.2) mg/dL AST 58 H (14-36) U/L ALT 25 (4-34) U/L Alkaline Phosphatase 81 (38-126) U/L Total Protein 6.9 (6.3-8.2) g/dL Albumin 4.6 (3.5-5.0) g/dL Current Medications Generic Name Dose Route Start Last Admin Trade Name Freq PRN Reason Stop Dose Admin Alprazolam 0.25 mg 05/26/24 09:34 Alprazolam 0.25 Mg Tab PO Q6HR PRN Mild Anxiety Alprazolam 0.5 mg 05/26/24 09:34 Alprazolam 0.5 Mg Tab PO Q6HR PRN Moderate Anxiety Aspirin 81 mg 05/27/24 09:00 Aspirin 81 Mg PO DAILY JAVY Atorvastatin Calcium 80 mg 05/26/24 21:00 Atorvastatin 80 Mg Tab PO HS JAVY Heparin Sodium (Porcine) 0 unit 05/26/24 08:32 Heparin Sodium 1,000 Un/Ml (10ml Vl) IV Q6HR PRN Low PTT Protocol Heparin Sodium/Sodium Chloride 250 mls @ 10 mls/hr 05/26/24 08:45 05/26/24 08:52 25,000 unit/ Sodium Chloride IV 11.7267 units/kg/hr .Q24H JAVY 10 mls/hr Administration Protocol 11.7267 UNITS/KG/HR Heparin Sodium (Porcine) 10, 1,001 mls @ 999 mls/hr 05/27/24 07:00 000 unit/ Sodium Chloride IRRIGATION 05/27/24 23:00 ONCE PRN INTRA-OP Heparin Sodium (Porcine) 2,500 250.5 mls @ 250 mls/hr 05/27/24 07:00 unit/ Sodium Chloride IRRIGATION 05/27/24 23:00 ONCE PRN INTRA-OP Sodium Chloride 1,000 ml/ IV 1,000 mls @ 85.275 mls/hr 05/26/24 09:45 05/26/24 10:53 Solution IV 85.275 mls/hr .[id number] JAVY Administration 1 ML/KG/HR Metoprolol Tartrate 25 mg 05/26/24 09:30 05/26/24 09:42 Metoprolol Tartrate 25 Mg Tab PO 25 mg BID JAVY Administration Nitroglycerin 1 inch 05/26/24 12:00 05/26/24 11:09 Nitroglycerin Oint 1 Inch/Gm Packet TOPICAL 1 inch Q6HR JAVY Administration Nitroglycerin 0.4 mg 05/26/24 09:34 Nitroglycerin Sl Tabs 0.4 Mg Tab SUBLINGUAL Q5M PRN Chest Pain Ranolazine 500 mg 05/26/24 10:15 05/26/24 10:50 Ranolazine 500 Mg Tab.Er.12h PO 500 mg BID JAVY Administration Intake and Output 05/25/24 05/26/24 05/26/24 22:59 06:59 14:59 Other: Weight 85.275 kg 05/26/24 07:37 05/26/24 07:37
[2024-05-26] MEDS ORDERED: ZOLPIDEM 5 MG TAB PO PRN (13:22)
[2024-05-26] MEDS ORDERED: MAG HYDROX/AL HYDROX/SIMETH 30 ML CUP PO PRN (13:22)
[2024-05-26] MEDS ORDERED: RX INFO: IV CONTRAST WAS GIVEN 1 EACH MISC MISCELLANE PRN (13:22)
[2024-05-26] MEDS ORDERED: ATROPINE SULFATE 0.1 MG/ML 10ML SYRINGE IV PRN (13:22)
--- NOTE | 2024-05-26 13:34 | P.CARDCATH ---
Date of Procedure: 05/26/24 Description of Procedure: Cardiac Catheterization: The patient is a 73-year-old female with a history of hyperlipidemia and hypertension who presented with symptoms of chest comfort that woke her up from sleep. On presentation she had an EKG with T wave inversion anteriorly with elevation of her troponin consistent with anterior wall non-STEMI. Recommendations were made regarding cardiac catheterization, the risks and the complications were discussed with the patient who is in full understanding and a greement. Procedure Description: Patient was brought to cath lab nurse in fasting semi-sedated state after receiving Fentanyl and Benadryl achieiving moderate conscious sedated state. Using Xylocaine Anesthesia and modified Seldinger technique, a 6-[place] sheath was introduced in the right radial artery . Subsequently, selective coronary angiography was performed using a 5-[place] 3.5 bend Kari catheter. Multiple views of the coronary artery including hemiaxial views were obtained. The 5 [place] pigtail catheter was used to cross the aortic valve and LVEDP was calculated. PCI: After removing the catheters attempt to advance a 6 [place] CLS 3.5 and EBU 3.75 guiding catheter were unsuccessful, could not advance in the forearm subsequently a 6 [place] FL 3.5 guiding catheter was introduced and the left main was cannulated. A 0.14 BMW J-wire with a super cross straight microcatheter were used to cross the lesion and positioned the wire in the distal LAD. The microcatheter was removed and subsequently a 2.5 x 12 mm trek balloon was advanced and multiple inflations at 8 mitchell were done. After removing the balloon a [place] eye IVUS catheter was introduced and images were obtained and revealed a distal vessel of 2.5 to 2.75 mm in diameter with no significant calcifications. At that time a 2.75 x 23 mm Xience lovely point was advanced and deployed at 16 mitchell. Repeat IVUS imaging was performed and revealed good apposition distally with under deployment proximally. There was intimal disease proximal to the lesion at the bifurcation of the first septal carbonation tester. A 3.5 x 15 mm NC trek balloon was advanced and 1 inflation in the proximal segment of the stent at 10 mitchell was done. After the last inflation the wire was removed and images were obtained and revealed stable successful stenting. Following that, catheter and sheath were removed. Hemostasis was obtained with deployment of vascular band . There was no immediate complication. Patient was returned to room in stable condition. Of note, the patient received a total of 6500 units of intravenous heparin as well as intra-arterial verapamil. She received an oral loading dose of Brilinta. Her ACT was monitored. She had no chest discomfort or EKG changes with the inflations. Findings: Left main: This is a short size vessel, bifurcating into LAD and left circumflex, left main has no obstructive disease. LAD: This vessel gives rise to a proximal first septal carbonation tester subsequently there is no significant antegrade flow was very slow filling of the mid and distal LAD. Left circumflex: This is a large nondominant vessel giving rise to a large obtuse marginal branch. The obtuse marginal branch origin is tortuous. The left circumflex and its branches have no obstructive disease. RCA: This is a large dominant vessel, bifurcating distally to PDA and PLV, tortuous in the distal segment. The RCA and its branches have no obstructive disease. Left Ventriculogram: Not performed Hemodynamics: There was no gradient across the aortic valve, LVEDP was 18-22 mmHg Conclusion: 1. Acutely occluded mid LAD 2. No obstructive disease in the RCA and left circumflex 3. Successful stenting of the mid LAD with reduction of stenosis from 100% to less than 5% with intimal disease proximal to the stent and diffuse intimal disease in the distal vessel at the apex of mild to moderate severity. Imaging with IVUS and NELLY-3 flow was noted. Recommendations: The patient will continue on aspirin and ticagrelor for 1 year without any interruption in addition to aggressive coronary risks modifications, attempting to maintain LDL below 70 mg/dL. Close follow-up of her LV systolic function will be made. The findings and the recommendations were discussed with the patient and the family and they were in full understanding and agreement. Duration of sedation is 52 minutes.
--- NOTE | 2024-05-26 13:54 | CA ---
Transthoracic Echo Report Name: Lesly Guerra Age: 73 Gender: F : 1950 Exam Date: 05/26/2024 09:18 Exam Location: [facility] Ht (in): 62 Wt (lb): 188 Ordering Physician: Wili Resendez Attending/Referring Phys: CATHERINE, Mal Retail Support Associate Morelia Andrade RDCS Procedure CPT: Indications: nstemi Cardiac Hx: Technical Quality: Fair Contrast 1: Definity Total Dose (mL): 2 Contrast 2: Total Dose (mL): MEASUREMENTS (Male / Female) Normal Values 2D ECHO LV Diastolic Diameter PLAX 4.6 cm 4.2 - 5.9 / 3.9 - 5.3 cm LV Systolic Diameter PLAX 3.6 cm IVS Diastolic Thickness 1.2 cm 0.6 - 1.0 / 0.6 - 0.9 cm LVPW Diastolic Thickness 1.0 cm 0.6 - 1.0 / 0.6 - 0.9 cm LV Relative Wall Thickness 0.5 RV Internal Dim ED PLAX 2.0 cm LA Systolic Diameter LX 3.9 cm 3.0 - 4.0 / 2.7 - 3.8 cm M-MODE Aortic Root Diameter MM 3.7 cm LA Systolic Diameter MM 2.5 cm LA Ao Ratio MM 0.7 AV Cusp Separation MM 1.5 cm DOPPLER AI Peak Velocity 279.0 cm/s AI Peak Gradient 31.1 mmHg AI Pressure Half Time 854.1 ms LVOT Peak Velocity 88.3 cm/s LVOT Peak Gradient 3.1 mmHg LVOT Velocity Time Integral 19.0 cm MV E' Velocity 5.1 cm/s TR Peak Velocity 201.5 cm/s TR Peak Gradient 16.2 mmHg FINDINGS Left Ventricle Left ventricular ejection fraction is estimated at 30 to 35% %. Mildly increased left ventricular wall thickness. Left ventricular cavity size normal. Anteroapical, anteroseptal and anterolateral akinesis. Right Ventricle Normal right ventricular size and function. Right ventricular systolic pressure within normal limits. Right Atrium Normal right atrial size. Left Atrium Normal left atrial size. Mitral Valve Structurally normal mitral valve. mild mitral regurgitation. No mitral stenosis. Aortic Valve Trileaflet aortic valve. No aortic stenosis. Mild aortic regurgitation. Tricuspid Valve Structurally normal tricuspid valve. Trace tricuspid regurgitation. No tricuspid stenosis. Pulmonic Valve Structurally normal pulmonic valve. Trace pulmonic regurgitation. No pulmonic stenosis. Pericardium No pericardial or pleural effusion. Aorta Aorta at the level of the sinuses of valsalva (root) normal. CONCLUSIONS 1. Severely impaired left ventricular systolic function with segmental wall motion abnormality consistent with CAD 2. Mild mitral and aortic regurgitation Definity ECHO contrast used for improved visualization of the endocardial borders (inadequate visualization of two or more contiguous segments). Previewed by: Dr. Apple Man MD (Electronically Signed) Final Date: 26 May 2024 13:53
[2024-05-26] MEDS: FUROSEMIDE 20 MG TAB PO SCH (17:35)
[2024-05-26] MEDS: TICAGRELOR 90 MG TAB PO SCH (20:29)
[2024-05-26] MEDS: ATORVASTATIN 80 MG TAB PO SCH (20:29)
[2024-05-27] MEDS ORDERED: HEPARIN SODIUM,PORCINE 10,000 UNIT in SODIUM CHLORIDE 0.9% 1,000 ML IRRIGATION PRN (07:00)
[2024-05-27] MEDS ORDERED: HEPARIN SODIUM,PORCINE (1 ML) 2,500 UNIT in SODIUM CHLORIDE 0.9% 250 ML IRRIGATION PRN (07:00)
[2024-05-27] MEDS: SPIRONOLACTONE 25 MG TAB PO SCH (08:56)
[2024-05-27] MEDS: ASPIRIN 81 MG PO SCH (08:56)
[2024-05-27] MEDS ORDERED: ASPIRIN 325 MG TAB PO SCH (09:00)
[2024-05-27] MEDS ORDERED: ASPIRIN 81 MG PO SCH (09:00)
[2024-05-27 09:24] LABS: HCT 42.2 % (34.0-46.0); HGB 13.6 gm/dL (11.4-16.0); MCH 29.3 pg (25.0-35.0); MCHC 32.3 g/dL (31.0-37.0); MCV 90.6 fL (80.0-100.0); Mean Platelet Volume 7.5; Platelet Count 190 k/uL (150-450); RBC 4.66 m/uL (3.80-5.40); RDW 13.8 % (11.5-15.5); WBC 8.4 k/uL (3.8-10.6)
[2024-05-27 09:36] LABS: African American GFR (CKD) 72 (>60 ml/min/1.73 sqM); Anion Gap 7 mmol/L; Blood Urea Nitrogen 18 mg/dL (7-17); Calcium 8.9 mg/dL (8.4-10.2); Carbon Dioxide 22 mmol/L (22-30); Chloride 106 mmol/L (98-107); Glucose 162 mg/dL (74-99); Non-African American GFR(CKD) 62 (>60 ml/min/1.73 sqM); Potassium 3.9 mmol/L (3.5-5.1); Sodium 135 mmol/L (137-145)
[2024-05-27 10:24] LABS: Chol/HDL Ratio 3.43 Ratio; LDL Cholesterol,Calculated 99.6 mg/dL (0.0-131.0)
--- NOTE | 2024-05-27 13:57 | P.PN ---
Subjective HISTORY OF PRESENT ILLNESS: This is a 73-year-old female with a past medical history significant for hypertension, hyperlipidemia, and former nicotine dependence. Patient follows with a molecular spectroscopist in [place], Dr. Mukesh Thayer. We have been asked to see the patient in consultation for elevated troponins. Patient examined at the bedside in the emergency room. Patient states that she woke up around 1:00 in the morning with pain in the middle of her chest. She denied having any radiation of the pain. She states this is the first time she has had an episode of chest pain like this. She states yesterday she was not feeling well and has been tired lately but denied having any chest pain or shortness of breath yesterday. Patient presented to the hospital for further evaluation. She was found to have elevated troponins and was started on IV heparin. Patient states that she is a former cigarette smoker but quit smoking in her 20s. Patient also reports a vague history of a clot in her heart about 20 years ago. She states that she was also told many years ago that the bottom part of her heart was not working as well as the top part. However she denies having a history of CAD or previous stenting. Patient is prescribed Ranexa and Imdur on an outpatient basis. Patient is unable to state the reason why she is prescribed these medications. DIAGNOSTICS: - EKG reveals sinus mechanism with T wave inversions in anterior lateral leads - Chest xray no suspicious no acute pulmonary process - Laboratory data: WBC 10.8. Hemoglobin 14.7. Platelet count 213. Sodium 138. Potassium 4.4. BUN 16. Creatinine 0.84. Troponin 5.890. 6.860. proBNP 11,300 - Current home cardiac medications include aspirin 81 mg daily, atorvastatin 40 mg daily, Imdur 120 mg daily, metoprolol tartrate 25 mg daily, Ranexa 1000 mg twice a day, amlodipine 5 mg daily - No previous echocardiogram, stress test, or cardiac catheterization available in EMR for review 05/27/2024 Patient underwent cardiac catheterization yesterday with Dr. Man revealing acutely occluded mid LAD. No obstructive disease in the RCA and left circumflex. Patient underwent stenting of the mid LAD. Echocardiogram completed revealing ejection fraction 30 to 35%, anterior apical, anterior septal and anterior lateral akinesis, mild aortic regurgitation, trace TR. P atient examined this morning the bedside. Patient currently denies chest pain or pressure. She denies shortness of breath. [place] [address]. Telemetry Veals sinus mechanism. PHYSICAL EXAM: VITAL SIGNS: Reviewed. GENERAL: Well-developed in no acute distress. HEENT: Head is normocephalic. Pupils are equal, round. Sclerae anicteric. Mucous membranes of the mouth are moist. Neck supple. No JVD or thyromegaly LUNGS: Respirations even and unlabored. Lungs essentially clear to auscultation bilaterally. HEART: Regular rate and rhythm. S1 and S2 heard. Systolic murmur noted ABDOMEN: Soft. Nondistended. Nontender. EXTREMITIES: Normal range of motion. No clubbing or cyanosis. Peripheral pulses intact. No lower extremity edema NEUROLOGIC: Awake and alert. Oriented x 3. ASSESSMENT: Non-STEMI status post cardiac catheterization with stenting of the mid LAD Ischemic cardiomyopathy, 3035 History of hypertension History of hyperlipidemia Former nicotine dependence, patient quit smoking in her 20s Obesity: BMI 34.4 PLAN: Continue dual antiplatelet therapy with aspirin and Brilinta for 12 months Continue high intensity statin. LDL goal less than 70. Decrease Lasix to 20 mg daily Continue additional cardiac medications Recheck kidney function in a.m. Possible discharge home tomorrow if patient remains stable Further recommendations pending patient course Nurse practitioner note has been reviewed by physician. Signing provider agrees with the documented findings, assessment, and plan of care documented by SOFTWARE TEAM LEADER as a scribe. Objective - Vital Signs Vital signs: Vital Signs Temp 97.0 F L 05/27/24 08:00 Pulse 72 05/27/24 08:00 Resp 16 05/27/24 08:00 BP 92/53 05/27/24 08:00 Pulse Ox 97 05/27/24 08:00 FiO2 Intake & Output 05/26/24 05/27/24 05/27/24 18:59 06:59 18:59 Intake Total 473 1080 150 Balance 473 1080 150 Weight 85.275 kg 85.6 kg Intake: IV 100 Intake, IV Titration 75 Amount Sodium Chloride 0.9% 1, 75 000 ml In Empty Bag 1 bag @ 1 ML/KG/HR 85.275 mls/ hr IV .[id number] [facility] Rx#: [id number] Oral 298 1080 150 Other: Voiding Method Toilet Toilet # Voids 1 - Labs CBC & Chem 7: 05/27/24 08:56 01/05/25 06:00 Labs: Abnormal Lab Results - Last 24 Hours (Table) 05/26/24 05/26/24 05/26/24 Range/Units 15:01 15:01 20:29 APTT 73.4 H 21.7 L (22.0-30.0) sec Sodium (137-145) mmol/L BUN (7-17) mg/dL Glucose (74-99) mg/dL Troponin I 12.300 H* (0.000-0.034) ng/mL 05/27/24 05/27/24 Range/Units 04:00 06:00 APTT 21.6 L (22.0-30.0) sec Sodium 135 L (137-145) mmol/L BUN 18 H (7-17) mg/dL Glucose 162 H (74-99) mg/dL Troponin I (0.000-0.034) ng/mL
--- NOTE | 2024-05-27 14:29 | P.PN ---
Subjective Progress Note Date: 05/27/24 73-year-old pleasant female came in with pressure-like chest pain on the left side of the chest started yesterday. Patient is found to have elevated troponin of about 5 and patient has T wave inversions in lead I and lead II patient chest pain is significant in nature. Patient denied any shortness of breath patient also has elevated BNP of around 10,000 chest x-ray is essentially within normal limits patient does not have any history of congestive heart failure patient does have history of coronary artery disease. 05/27/2024 Patient evaluated in follow-up on the medical floor she continues to report shortness of breath. However her chest pain has completely resolved at this time. She is postoperative cardiac catheterization with a stent placed to the mid LAD. She is now on aspirin and Brilinta therapy. Patient will be monitored overnight encouraged to get up and ambulate. Echocardiogram comes back revealing an ejection fraction of 30 to 35%. Lipid panel has been completed revealing a triglyceride level of 129 cholesterol 177 LDL of 99.6 and an HDL of 51.60. Review of Systems Constitutional: Denied any fatigue denied any fever. Cardio vascular: denied any chest pain, palpitations Gastrointestinal: denied any nausea, vomiting, diarrhea Pulmonary: Denied any shortness of breath cough Neurologic denied any new focal deficits All inpatient medications were reviewed and appropriate changes in these medications as dictated in the interval history and assessment and plan. PHYSICAL EXAMINATION: GENERAL: The patient is alert and oriented x3, not in any acute distress. Well developed, well nourished. HEENT: Pupils are round and equally reacting to light. EOMI. No scleral icterus. No conjunctival pallor. Normocephalic, atraumatic. No pharyngeal erythema. No thyromegaly. CARDIOVASCULAR: S1 and S2 present. No murmurs, rubs, or gallops. PULMONARY: Chest is clear to auscultation, no wheezing or crackles. ABDOMEN: Soft, nontender, nondistended, normoactive bowel sounds. No palpable organomegaly. MUSCULOSKELETAL: No joint swelling or deformity. EXTREMITIES: No cyanosis, clubbing, or pedal edema. NEUROLOGICAL: Gross neurological examination did not reveal any focal deficits. SKIN: No rashes. Assessment and plan -Acute non-ST elevation myocardial infarction status postcardiac catheterization and stenting to the mid LAD -Coronary artery disease history -Gastroesophageal reflux disease -Hyperlipidemia -Ischemic cardiomyopathy -Former nicotine use Full Code Plan Continue dual antiplatelet therapy with aspirin and plavix Continue statin therapy and goal of LDL less than 70, LDL currently 99.6 Continues on lasix daily Patient encouraged to ambulate Will monitor overnight on cardiac telemetry Possible discharge home tomorrow The impression and plan of care has been dictated by Georgina Shukla, Nurse Practitioner as directed. Dr. Alyssa MD I have performed a history and physical examination and medical decision making of this patient, discussed the same with the dictator, and agree with the dictators assessment and plan as written, documented as a scribe. Based on total visit time, I have performed more than 50% of this visit. Objective - Vital Signs Vital signs: Vital Signs Temp 97.0 F L 05/27/24 08:00 Pulse 72 05/27/24 08:00 Resp 16 05/27/24 08:00 BP 92/53 05/27/24 08:00 Pulse Ox 97 05/27/24 08:00 FiO2 Intake & Output 05/26/24 05/27/24 05/27/24 18:59 06:59 18:59 Intake Total 473 1080 150 Balance 473 1080 150 Weight 85.275 kg 85.6 kg Intake: IV 100 Intake, IV Titration 75 Amount Sodium Chloride 0.9% 1, 75 000 ml In Empty Bag 1 bag @ 1 ML/KG/HR 85.275 mls/ hr IV .[id number] [facility] Rx#: [id number] Oral 298 1080 150 Other: Voiding Method Toilet Toilet # Voids 1 - Labs CBC & Chem 7: 05/27/24 08:56 05/27/24 06:00 Labs: Abnormal Lab Results - Last 24 Hours (Table) 05/26/24 05/26/24 05/26/24 Range/Units 15:01 15:01 20:29 APTT 73.4 H 21.7 L (22.0-30.0) sec Sodium (137-145) mmol/L BUN (7-17) mg/dL Glucose (74-99) mg/dL Troponin I 12.300 H* (0.000-0.034) ng/mL 05/27/24 05/27/24 Range/Units 04:00 06:00 APTT 21.6 L (22.0-30.0) sec Sodium 135 L (137-145) mmol/L BUN 18 H (7-17) mg/dL Glucose 162 H (74-99) mg/dL Troponin I (0.000-0.034) ng/mL Assessment and Plan Time with Patient: Less than 30
[2024-05-27 23:11] LABS: Chol/HDL Ratio 3.71 Ratio
[2024-05-27 23:17] LABS: LDL Cholesterol,Calculated 101.7 mg/dL (0.0-131.0)
[2024-05-28 08:43] LABS: African American GFR (CKD) 69 (>60 ml/min/1.73 sqM); Anion Gap 7 mmol/L; Blood Urea Nitrogen 22 mg/dL (7-17); Calcium 8.9 mg/dL (8.4-10.2); Carbon Dioxide 25 mmol/L (22-30); Chloride 104 mmol/L (98-107); Glucose 99 mg/dL (74-99); Non-African American GFR(CKD) 60 (>60 ml/min/1.73 sqM); Potassium 4.4 mmol/L (3.5-5.1); Sodium 136 mmol/L (137-145)
[2024-05-28] MEDS: FUROSEMIDE 20 MG TAB PO SCH (09:19)
--- NOTE | 2024-05-28 10:11 | P.PN ---
Subjective HISTORY OF PRESENT ILLNESS: This is a 73-year-old female with a past medical history significant for hypertension, hyperlipidemia, and former nicotine dependence. Patient follows with a digital court reporter in [place], Dr. Mukesh Thayer. We have been asked to see the patient in consultation for elevated troponins. Patient examined at the bedside in the emergency room. Patient states that she woke up around 1:00 in the morning with pain in the middle of her chest. She denied having any radiation of the pain. She states this is the first time she has had an episode of chest pain like this. She states yesterday she was not feeling well and has been tired lately but denied having any chest pain or shortness of breath yesterday. Patient presented to the hospital for further evaluation. She was found to have elevated troponins and was started on IV heparin. Patient states that she is a former cigarette smoker but quit smoking in her 20s. Patient also reports a vague history of a clot in her heart about 20 years ago. She states that she was also told many years ago that the bottom part of her heart was not working as well as the top part. However she denies having a history of CAD or previous stenting. Patient is prescribed Ranexa and Imdur on an outpatient basis. Patient is unable to state the reason why she is prescribed these medications. DIAGNOSTICS: - EKG reveals sinus mechanism with T wave inversions in anterior lateral leads - Chest xray no suspicious no acute pulmonary process - Laboratory data: WBC 10.8. Hemoglobin 14.7. Platelet count 213. Sodium 138. Potassium 4.4. BUN 16. Creatinine 0.84. Troponin 5.890. 6.860. proBNP 11,300 - Current home cardiac medications include aspirin 81 mg daily, atorvastatin 40 mg daily, Imdur 120 mg daily, metoprolol tartrate 25 mg daily, Ranexa 1000 mg twice a day, amlodipine 5 mg daily - No previous echocardiogram, stress test, or cardiac catheterization available in EMR for review 05/27/2024 Patient underwent cardiac catheterization yesterday with Dr. Man revealing acutely occluded mid LAD. No obstructive disease in the RCA and left circumflex. Patient underwent stenting of the mid LAD. Echocardiogram completed revealing ejection fraction 30 to 35%, anterior apical, anterior septal and anterior lateral akinesis, mild aortic regurgitation, trace TR. P atient examined this morning the bedside. Patient currently denies chest pain or pressure. She denies shortness of breath. Blood [place] [address]. Telemetry reveals sinus mechanism. 05/28/2024 Patient examined this morning at the bedside. She denies chest pain or pressure. She reports SOB this morning while walking to the bathroom which she hasnt had before during this hospitalization. She denies dizziness or lightheadedness. Blood pressures remains borderline with SBP in the 90s. PHYSICAL EXAM: VITAL SIGNS: Reviewed. GENERAL: Well-developed in no acute distress. HEENT: Head is normocephalic. Pupils are equal, round. Sclerae anicteric. Mucous membranes of the mouth are moist. Neck supple. No JVD or thyromegaly LUNGS: Respirations even and unlabored. Lungs essentially clear to auscultation bilaterally. HEART: Regular rate and rhythm. S1 and S2 heard. Systolic murmur noted ABDOMEN: Soft. Nondistended. Nontender. EXTREMITIES: Normal range of motion. No clubbing or cyanosis. Peripheral pulses intact. No lower extremity edema NEUROLOGIC: Awake and alert. Oriented x 3. ASSESSMENT: Non-STEMI status post cardiac catheterization with stenting of the mid LAD Ischemic cardiomyopathy, 3035 History of hypertension History of hyperlipidemia Former nicotine dependence, patient quit smoking in her 20s Obesity: BMI 34.4 PLAN: Continue dual antiplatelet therapy for 12 months. Continue aspirin. Discontinue Brilinta as this may be contributing to her SOB. Give Plavix 600mg x 1 this evening at 1800. Give Lovenox x 1 dose at 1600. Begin Plavix 75mg daily starting tomorrow Continue high intensity statin. LDL goal less than 70. Decrease Aldactone to 12.5mg daily Continue additional cardiac medications Obtain CXR this AM Continue to monitor patient for an additional 24 hours Further recommendations pending patient course Nurse practitioner note has been reviewed by physician. Signing provider agrees with the documented findings, assessment, and plan of care documented by ARTIFICIAL PEARL MAKER as a scribe. Objective - Vital Signs Vital signs: Vital Signs Temp 98.3 F 05/28/24 04:00 Pulse 66 05/28/24 08:00 Resp 16 05/28/24 08:00 BP 92/54 05/28/24 08:00 Pulse Ox 97 05/28/24 08:00 FiO2 Intake & Output 05/27/24 05/28/24 05/28/24 18:59 06:59 18:59 Intake Total 450 Balance 450 Weight 86.7 kg Intake: Oral 450 Other: Voiding Method Toilet Toilet # Voids 1 2 - Labs CBC & Chem 7: 05/27/24 08:56 05/28/24 07:46 Labs: Abnormal Lab Results - Last 24 Hours (Table) 05/27/24 05/28/24 Range/Units 13:33 07:46 Sodium 136 L (137-145) mmol/L BUN 22 H (7-17) mg/dL Triglycerides 200.00 H (0.00-149.00) mg/dL
--- NOTE | 2024-05-28 10:47 | XR ---
EXAMINATION TYPE: XR chest 2V DATE OF EXAM: 05/28/2024 10:38 AM COMPARISON: 05/26/2024 CLINICAL INDICATION: Female, 73 years old with history of SOB, , TECHNIQUE: PA and lateral views FINDINGS: Heart upper limits of normal in size. Unchanged strandy scarring/atelectasis left midlung. Mild inter stitial prominence is unchanged. DISH midthoracic spine. Otherwise, no consolidation or pleural effus ion. IMPRESSION: Borderline heart size and chronic appearing changes. Similar scar/atelectasis left midlung. No acute change. [facility], Workstation: [facility], 05/28/2024 10:45 AM
--- NOTE | 2024-05-28 13:57 | P.PN ---
Subjective Progress Note Date: 05/28/24 Principal diagnosis: Hospital course: 73-year-old pleasant female came in with pressure-like chest pain on the left side of the chest started yesterday. Patient is found to have elevated troponin of about 5 and patient has T wave inversions in lead I and lead II patient chest pain is significant in nature. Patient denied any shortness of breath patient also has elevated BNP of around 10,000 chest x-ray is essentially within normal limits patient does not have any history of congestive heart failure patient does have history of coronary artery disease. 05/27/2024 Patient evaluated in follow-up on the medical floor she continues to report shortness of breath. However her chest pain has completely resolved at this time. She is postoperative cardiac catheterization with a stent placed to the mid LAD. She is now on aspirin and Brilinta therapy. Patient will be monitored overnight encouraged to get up and ambulate. Echocardiogram comes back revealing an ejection fraction of 30 to 35%. Lipid panel has been completed revealing a triglyceride level of 129 cholesterol 177 LDL of 99.6 and an HDL of 51.60. 05/28/24: Patient seen and examined at bedside. Vital signs show pulse 54. Patient complains of shortness of breath while getting up to go to the restroom. Labs today show sodium 136, BUN 22, triglycerides 200. Chest x-ray obtained today shows borderline heart size and chronic appearing changes, similar scar/atelectasis of the left midlung, no acute change. Review of systems: Pertinent positives and negatives as discussed in HPI, a complete review of systems was performed and all other systems are negative. Vitals: Signs Reviewed Physical examination: General: nontoxic, no distress, appears at stated age Derm: warm, dry, intact Head: atraumatic, normocephalic, symmetric Eyes: EOMI, anicteric sclera Mouth: no lip lesion, mucus membranes moist Cardiovascular: S1 S2 reg, no murmur Lungs: CTA bilateral, no rhonchi, no rales, no accessory muscle use Abdominal: soft, non-tender to palpataion Extremities: No cyanosis, clubbing, or pedal edema. Neuro: Alert, Oriented, Gross neurological examination did not reveal any focal deficits. Psych: well appearing, appropriate affect Assessment/Plan: Active: #. Acute non-ST elevation myocardial infarction #. S/p cardiac catheterization and stenting to the mid LAD #. Coronary artery disease history #. Ischemic cardiomyopathy Chest x-ray obtained on 05/28/24 shows borderline heart size and chronic appearing changes, similar scar/atelectasis of the left midlung, no acute change. Continue dual antiplatelet therapy for 12 months. Continue aspirin 81 mg p.o. daily Discontinue Ticagrelor due to shortness of breath Lovenox 80 mg SQ once at 1600 today Plavix 600 mg PO once at 1800 today Continue atorvastatin 80 mg p.o. at bedtime with goal LDL less than 70 Continue furosemide 80 mg p.o. daily, lisinopril 2.5 mg p.o. daily, metoprolol 25 mg p.o. twice daily Decrease Spironolactone to 12.5 mg PO daily Continue nitroglycerin 0.4 mg sublingual Q5M as needed for chest pain Continue telemetry monitoring Cardiology is following, recommend to begin Plavix starting tomorrow and monitor for additional 24 hours #. Symptomatic bradycardia Continue atropine 0.5 mg IV once as needed #. Anxiety Continue on Rocephin 0.5 mg p.o. every 6 hours as needed for mild anxiety, alprazolam 0.5 mg p.o. every 6 hours as needed for moderate anxiety #. Heartburn Continue Maalox 30 mL p.o. every 4 hours as needed #. Insomnia Continue zolpidem 5 mg p.o. at bedtime as needed Chronic: #. Hypertension #. Gastroesophageal reflux disease #. Hyperlipidemia #. Former nicotine use Objective - Vital Signs Vital signs: Vital Signs Temp 98.3 F 05/28/24 04:00 Pulse 54 L 05/28/24 04:00 Resp 18 05/28/24 04:00 BP 113/77 05/28/24 04:00 Pulse Ox 97 05/28/24 04:00 FiO2 Intake & Output 05/27/24 05/28/24 05/28/24 18:59 06:59 18:59 Intake Total 450 Balance 450 Weight 86.7 kg Intake: Oral 450 Other: Voiding Method Toilet Toilet # Voids 1 2 - Labs CBC & Chem 7: 05/27/24 08:56 05/28/24 07:46 Labs: Abnormal Lab Results - Last 24 Hours (Table) 05/27/24 05/27/24 Range/Units 06:00 13:33 Sodium 135 L (137-145) mmol/L BUN 18 H (7-17) mg/dL Glucose 162 H (74-99) mg/dL Triglycerides 200.00 H (0.00-149.00) mg/dL
[2024-05-28 14:57] VITALS: BMI 34.9
[2024-05-28] MEDS: ENOXAPARIN 80 MG/0.8 ML SYRINGE SQ ONE (16:22)
[2024-05-28] MEDS: CLOPIDOGREL 75 MG TAB PO ONE (16:25)
[2024-05-28] MEDS: SODIUM CHLORIDE 0.9% 500 ML 250 ML IV ONE (16:42)
[2024-05-29 08:04] LABS: HCT 38.2 % (34.0-46.0); HGB 12.4 gm/dL (11.4-16.0); MCH 29.9 pg (25.0-35.0); MCHC 32.4 g/dL (31.0-37.0); MCV 92.2 fL (80.0-100.0); Mean Platelet Volume 8.1; Platelet Count 176 k/uL (150-450); RBC 4.15 m/uL (3.80-5.40); RDW 13.8 % (11.5-15.5); WBC 7.1 k/uL (3.8-10.6)
[2024-05-29 08:15] LABS: African American GFR (CKD) 72 (>60 ml/min/1.73 sqM); Anion Gap 8 mmol/L; Blood Urea Nitrogen 22 mg/dL (7-17); Calcium 8.6 mg/dL (8.4-10.2); Carbon Dioxide 23 mmol/L (22-30); Chloride 107 mmol/L (98-107); Glucose 100 mg/dL (74-99); Non-African American GFR(CKD) 63 (>60 ml/min/1.73 sqM); Potassium 4.6 mmol/L (3.5-5.1); Sodium 138 mmol/L (137-145)
[2024-05-29 08:23] LABS: NT-Pro-B-Type Natriuretic Pept 2670 pg/mL
[2024-05-29] MEDS: CLOPIDOGREL 75 MG TAB PO SCH (08:34)
[2024-05-29] MEDS: SPIRONOLACTONE 25 MG TAB PO SCH (08:35)
[2024-05-29 08:40] VITALS: RESP 16; TEMP 98
[2024-05-29 12:55] VITALS: BP 118/79; PULSE 60
--- NOTE | 2024-05-29 13:33 | P.PN ---
Subjective HISTORY OF PRESENT ILLNESS: This is a 73-year-old female with a past medical history significant for hypertension, hyperlipidemia, and former nicotine dependence. 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 Mukesh Thayer. We have been asked to see the patient in consultation for elevated troponins. Patient examined at the bedside in the emergency room. Patient states that she woke up around 1:00 in the morning with pain in the middle of her chest. She denied having any radiation of the pain. She states this is the first time she has had an episode of chest pain like this. She states yesterday she was not feeling well and has been tired lately but denied having any chest pain or shortness of breath yesterday. Patient presented to the hospital for further evaluation. She was found to have elevated troponins and was started on IV heparin. Patient states that she is a former cigarette smoker but quit smoking in her 20s. Patient also reports a vague history of a clot in her heart about 20 years ago. She states that she was also told many years ago that the bottom part of her heart was not working as well as the top part. However she denies having a history of CAD or previous stenting. Patient is prescribed Ranexa and Imdur on an outpatient basis. Patient is unable to state the reason why she is prescribed these medications. DIAGNOSTICS: - EKG reveals sinus mechanism with T wave inversions in anterior lateral leads - Chest xray no suspicious no acute pulmonary process - Laboratory data: WBC 10.8. Hemoglobin 14.7. Platelet count 213. Sodium 138. Potassium 4.4. BUN 16. Creatinine 0.84. Troponin 5.890. 6.860. proBNP 11,300 - Current home cardiac medications include aspirin 81 mg daily, atorvastatin 40 mg daily, Imdur 120 mg daily, metoprolol tartrate 25 mg daily, Ranexa 1000 mg twice a day, amlodipine 5 mg daily - No previous echocardiogram, stress test, or cardiac catheterization available in EMR for review 05/27/2024 Patient underwent cardiac catheterization yesterday with Dr. Man revealing acutely occluded mid LAD. No obstructive disease in the RCA and left circumflex. Patient underwent stenting of the mid LAD. Echocardiogram completed revealing ejection fraction 30 to 35%, anterior apical, anterior septal and anterior lateral akinesis, mild aortic regurgitation, trace TR. P atient examined this morning the bedside. Patient currently denies chest pain or pressure. She denies shortness of breath. Blood pressures [place] [address]. Telemetry reveals sinus mechanism. 05/28/2024 Patient examined this morning at the bedside. She denies chest pain or pressure. She reports SOB this morning while walking to the bathroom which she hasnt had before during this hospitalization. She denies dizziness or lightheadedness. Blood pressures remains borderline with SBP in the 90s. 05/29/2024 Patient examined this morning the bedside. Patient denies any further episodes of shortness of breath. She denies any chest pain or pressure. Vital signs are stable. Most recent blood pressure 118/79. Chest x-ray completed yesterday revealing borderline heart size and chronic appe aring changes. Similar scar/atelectasis left midlung. No acute changes. PHYSICAL EXAM: VITAL SIGNS: Reviewed. GENERAL: Well-developed in no acute distress. HEENT: Head is normocephalic. Pupils are equal, round. Sclerae anicteric. Mucous membranes of the mouth are moist. Neck supple. No JVD or thyromegaly LUNGS: Respirations even and unlabored. Lungs essentially clear to auscultation bilaterally. HEART: Regular rate and rhythm. S1 and S2 heard. Systolic murmur noted ABDOMEN: Soft. Nondistended. Nontender. EXTREMITIES: Normal range of motion. No clubbing or cyanosis. Peripheral pulses intact. No lower extremity edema NEUROLOGIC: Awake and alert. Oriented x 3. ASSESSMENT: Non-STEMI status post cardiac catheterization with stenting of the mid LAD Ischemic cardiomyopathy, 3035 History of hypertension History of hyperlipidemia Former nicotine dependence, patient quit smoking in her 20s Obesity: BMI 34.4 PLAN: Continue dual antiplatelet therapy with aspirin and Plavix for 12 months Continue high intensity statin. LDL goal less than 70. Continue additional cardiac medications Increase activity as tolerated Patient may be discharged home today from a cardiac standpoint Further recommendations pending patient course Nurse practitioner note has been reviewed by physician. Signing provider agrees with the documented findings, assessment, and plan of care documented by [employer] SAL[employer] as a scribe. Objective - Vital Signs Vital signs: Vital Signs Temp 98 F 05/29/24 08:00 Pulse 56 L 05/29/24 08:00 Resp 16 05/29/24 08:00 BP 110/57 05/29/24 08:00 Pulse Ox 96 05/29/24 08:00 FiO2 Intake & Output 05/28/24 05/29/24 05/29/24 18:59 06:59 18:59 Intake Total 950 236 Output Total 0 Balance 950 0 236 Weight 86.7 kg 86.3 kg Intake: Oral 950 236 Output: Urine 0 Other: Voiding Method Toilet Toilet # Voids 1 1 # Bowel Movements 0 - Labs CBC & Chem 7: 05/29/24 07:36 05/29/24 07:36 Labs: Abnormal Lab Results - Last 24 Hours (Table) 05/29/24 Range/Units 07:36 BUN 22 H (7-17) mg/dL Glucose 100 H (74-99) mg/dL
--- NOTE | 2024-05-29 13:52 | P.DS ---
Providers Date of admission: 05/26/24 09:34 Expected date of discharge: 05/29/24 Attending physician: Brice Leon Consults: 05/26/24 08:32 Consult Physician Urgent Consulting Provider: Apple Man Consult Reason/Comments: NSTEMI Do you want consulting provider notified?: Already Contacted 05/26/24 13:22 Consult Physician Routine Consulting Provider: [facility] Consult Reason/Comments: Post Interventional Patient Do you want consulting provider notified?: Already Contacted Primary care physician: Livia Ortega Hospital Course: Discharge diagnosis: Acute non-ST elevation myocardial infarction S/p cardiac catheterization and stenting to the mid LAD Coronary artery disease history Ischemic cardiomyopathy Symptomatic bradycardia Anxiety Heartburn Insomnia Hypertension Gastroesophageal reflux disease Hyperlipidemia Former nicotine use Hospital Course: 73-year-old pleasant female came in with pressure-like chest pain on the left side of the chest started yesterday. Patient is found to have elevated troponin of about 5 and patient has T wave inversions in lead I and lead II patient chest pain is significant in nature. Patient denied any shortness of breath patient also has elevated BNP of around 10,000 chest x-ray is essentially within normal limits patient does not have any history of congestive heart failure patient does have history of coronary artery disease. 05/27/2024 Patient evaluated in follow-up on the medical floor she continues to report shortness of breath. However her chest pain has completely resolved at this time. She is postoperative cardiac catheterization with a stent placed to the mid LAD. She is now on aspirin and Brilinta therapy. Patient will be monitored overnight encouraged to get up and ambulate. Echocardiogram comes back revealing an ejection fraction of 30 to 35%. Lipid panel has been completed revealing a triglyceride level of 129 cholesterol 177 LDL of 99.6 and an HDL of 51.60. 05/28/24: Patient seen and examined at bedside. Vital signs show pulse 54. Patient complains of shortness of breath while getting up to go to the restroom. Labs today show sodium 136, BUN 22, triglycerides 200. Chest x-ray obtained today shows borderline heart size and chronic appearing changes, similar scar/atelectasis of the left midlung, no acute change. 05/29/24: Patient evaluated at bedside. Vitals signs show pulse is 56. No new complaints today. Patient notes an improvement in her shortness of breath. Labs show hemoglobin 9.4, sodium 138, BUN 22, proBNP 2670. Patient seen at bedside today and is feeling good and excited about discharge. Patient will be discharged today and is given a script for aspirin 80 mg, Plavix 75 mg, atorvastatin 80 mg, Aldactone 12.5 mg metoprolol 25 mg lisinopril 2.5 mg. Patient is given a handout for heart attack and is advised to be compliant with medications. Patient is advised to follow-up with PCP in 1-2 days and social media manager in 1 week. Vital signs are reviewed and stable General: nontoxic, no distress, appears at stated age Derm: warm, dry, intact Head: atraumatic, normocephalic, symmetric Eyes: EOMI, anicteric sclera Mouth: no lip lesion, mucus membranes moist Cardiovascular: S1 S2 reg, no murmur Lungs: CTA bilateral, no rhonchi, no rales, no accessory muscle use Abdominal: soft, non-tender to palpataion Extremities: No cyanosis, clubbing, or pedal edema. Neuro: Alert, Oriented, Gross neurological examination did not reveal any focal deficits. Psych: well appearing, appropriate affect A total of 30 minutes of time were spent preparing this complex discharge summary. Patient was discharged on 05/29/24 at 1200. Patient Condition at Discharge: Stable Plan - Discharge Summary Discharge Rx Participant: Yes New Discharge Prescriptions: New Spironolactone [Aldactone] 12.5 mg PO DAILY 14 Days #14 tab Furosemide [Lasix] 20 mg PO DAILY 14 Days #14 tab Atorvastatin [Lipitor] 80 mg PO HS 14 Days #14 tab Clopidogrel [Plavix] 75 mg PO DAILY 14 Days #14 tab lisinopriL [Zestril] 2.5 mg PO DAILY 14 Days #14 tab Aspirin 81 mg PO DAILY 14 Days #14 tab Metoprolol Tartrate [Lopressor] 25 mg PO BID 14 Days #28 tab Continue Multivitamins, Thera [Multivitamin (formulary)] 1 tab PO DAILY Calcium Carbonate 500 mg PO DAILY Nitroglycerin Sl Tabs [Nitrostat] 0.4 mg SL Q5M PRN PRN Reason: Chest Pain Discontinued Isosorbide Mononitrate [Imdur] 120 mg PO DIRECTED Ranolazine [Ranexa] 1,000 mg PO DIRECTED Aspirin [Adult Low Dose Aspirin EC] 81 mg PO DAILY #1 tablet. Atorvastatin [Lipitor] 40 mg PO DIRECTED Metoprolol Tartrate [Lopressor] 25 mg PO DIRECTED amLODIPine [Norvasc] 5 mg PO DIRECTED Discharge Medication List Multivitamins, Thera [Multivitamin (formulary)] 1 tab PO DAILY 09/06/14 [History] Calcium Carbonate 500 mg PO DAILY 05/26/24 [History] Nitroglycerin Sl Tabs [Nitrostat] 0.4 mg SL Q5M PRN 05/26/24 [History] Aspirin 81 mg PO DAILY 14 Days #14 tab 05/29/24 [Rx] Atorvastatin [Lipitor] 80 mg PO HS 14 Days #14 tab 05/29/24 [Rx] Clopidogrel [Plavix] 75 mg PO DAILY 14 Days #14 tab 05/29/24 [Rx] Furosemide [Lasix] 20 mg PO DAILY 14 Days #14 tab 05/29/24 [Rx] Metoprolol Tartrate [Lopressor] 25 mg PO BID 14 Days #28 tab 05/29/24 [Rx] Spironolactone [Aldactone] 12.5 mg PO DAILY 14 Days #14 tab 05/29/24 [Rx] lisinopriL [Zestril] 2.5 mg PO DAILY 14 Days #14 tab 05/29/24 [Rx] Follow up Appointment(s)/Referral(s): Apple Man MD [STAFF PHYSICIAN] - 1 Week Livia Ortega DO [Primary Care Provider] - 1-2 days Patient Instructions/Handouts: Heart Attack (DC) Discharge Disposition: HOME SELF-CARE
== END 2024-05-29 14:24 | disposition home or self-care (01) | DRG 322 ==
LOC: EEVIPCON 06:50 → EC 06:50 → 3SCARD 09:34
PROVIDERS: ADMIT Hospitalist; ATTEND Hospitalist
PROC: B240ZZ3 Ultrasonography of Single Coronary Artery, Intravascular (ICD-10-PCS; 2024-05-26)
PROC: 027034Z Dilation of Coronary Artery, One Artery with Drug-eluting Intraluminal Device, Percutaneous Approach (ICD-10-PCS; principal; 2024-05-26 12:00)
PROC: 4A023N7 Measurement of Cardiac Sampling and Pressure, Left Heart, Percutaneous Approach (ICD-10-PCS; 2024-05-26 12:00)
PROC: B2111ZZ Fluoroscopy of Multiple Coronary Arteries using Low Osmolar Contrast (ICD-10-PCS; 2024-05-26 12:00)
DX: I21.4 Non-ST elevation (NSTEMI) myocardial infarction (principal); E66.9 Obesity, unspecified; I10 Essential (primary) hypertension; Z68.34 Body mass index [BMI] 34.0-34.9, adult; E78.5 Hyperlipidemia, unspecified; I25.10 Atherosclerotic heart disease of native coronary artery without angina pectoris; R00.1 Bradycardia, unspecified; I08.2 Rheumatic disorders of both aortic and tricuspid valves; I25.5 Ischemic cardiomyopathy; F41.9 Anxiety disorder, unspecified; K21.9 Gastro-esophageal reflux disease without esophagitis; G47.00 Insomnia, unspecified; I25.2 Old myocardial infarction; Z79.82 Long term (current) use of aspirin; Z87.891 Personal history of nicotine dependence; Z79.899 Other long term (current) drug therapy
CPT/HCPCS: 36415; 71046; 80048; 80053; 80061; 83735; 83880; 84484; 85025; 85027; 85610; 85730; 92978; 93005; 93306; 93458; 96365; 96366; 99291